=== PATIENT | female | born 2000 | race Caucasian/White ===

== ENCOUNTER 2023-02-05 19:53 | Observation (INO) ==
[2023-02-05 21:17] LABS: BILIRUBIN,URINE NEGATIVE (NEGATIVE); BLOOD/HEMOGLOBIN,URINE NEGATIVE (NEGATIVE); GLUCOSE, URINE NEGATIVE (NEGATIVE); KETONES,URINE NEGATIVE (NEGATIVE); LEUKOCYTE ESTERASE ,URINE NEGATIVE (NEGATIVE); NITRITES,URINE NEGATIVE (NEGATIVE); PROTEIN,URINE NEGATIVE (NEGATIVE); UROBILINOGEN,URINE NORMAL (NORMAL)
[2023-02-05 21:25] LABS: APPEARANCE,URINE CLEAR (CLEAR); COLOR,URINE PALE YELLOW (YELLOW)
--- NOTE | 2023-02-05 22:03 | ED.ABDFE ---
HPI Time Seen Time Seen by Provider: 02/05/23 22:02 PCP Primary Care Physician: CHRIS JOHNS Complaint Chief Complaint:: PT STATES" SHE STARTED HAVING ABDOMINAL PAIN FIVE DAYS AGO. SHE WENT AND SAY NAT AND RECIEVED PROTONIX AND GI COCKTAIL, AND HAD A U LTRASOUND DONE YESTERDAY. 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 Past Surgical History: Yes Surgical History: Appendectomy Family History History of Family Medical Conditions: Yes Family Medical History: Diabetes Mellitus, Cancer and Coronary Artery Disease Social History Type of Tobacco Use: VAPE Alcohol Use: None Do you use any recreational Drugs:: No Lives Where: Home Travel Risk Coronavirus risk:travel/contact w/high risk person: No Has patient experienced Coronavirus symptoms: No Infectious screening In the last 2 months have you had wt loss of >10#?: NO Have you had fever, night sweats or hemotysis?: No Have you traveled outside the country in the last 6 months?: No Isolation: Standard PE Vital Signs Vitals: Temperature 98 F Pulse Rate 77 Respiratory Rate 18 Blood Pressure 166/66 O2 Sat by Pulse Oximetry 98 ROR Labs Reviewed Result Diagrams: 02/05/23 22:21 02/05/23 22:21 Laboratory: WBC 9.8 X10^3/uL (3.6-10.0) 02/05/23 22:21 RBC 4.68 X10^6/uL (3.5-5.4) 02/05/23 22:21 Hgb 14.0 g/dL (12.0-16.0) 02/05/23 22:21 Hct 40.1 % (36.0-47.0) 02/05/23 22:21 MCV 85.7 fL (80.0-100.0) 02/05/23 22:21 MCH 29.9 pg (27.0-34.0) 03/25/23 22:21 MCHC 34.8 g/dL (33.0-35.0) 02/05/23 22:21 RDW 12.5 % (11.6-16.5) 02/05/23 22:21 Plt Count 263 X10^3/uL (150.0-450.0) 02/05/23 22:21 MPV 8.0 fL (7.4-11.0) 02/05/23 22:21 Neut % (Auto) 53.6 % (42.0-75.0) 02/05/23 22:21 Lymph % (Auto) 29.5 % (21.0-51.0) 02/05/23 22:21 [place] % (Auto) 6.6 % (0.0-13.0) 02/05/23 22:21 Eos % (Auto) 9.8 % (0.9-2.9) H 02/05/23 22:21 Baso % (Auto) 0.5 % (0.2-1.0) 02/05/23 22:21 Neut # (Auto) 5.3 x10^3/uL (2.2-4.8) H 02/05/23 22:21 Lymph # (Auto) 2.9 X10^3/uL (1.3-2.9) 02/05/23 22:21 [place] # (Auto) 0.6 x10^3/uL (0.3-0.8) 02/05/23 22:21 Eos # (Auto) 1.0 x10^3/uL (0.0-0.2) H 02/05/23 22:21 Baso # (Auto) 0.0 X10^3/uL (0.0-0.1) 02/05/23 22:21 Absolute Nucleated RBC 0.0 /100WBC 02/05/23 22:21 Sodium 140 mmol/L (136-145) 02/05/23 22:21 Corrected Sodium TNP 02/05/23 22:21 Potassium 4.0 mmol/L (3.5-5.1) 02/05/23 22:21 Chloride 103 mmol/L (98-107) 02/05/23 22:21 Carbon Dioxide 28.6 mmol/L (21-32) 02/05/23 22:21 BUN 13 mg/dL (7-18) 02/05/23 22:21 Creatinine 0.79 mg/dL (0.55-1.02) 02/05/23 22:21 Est GFR (MDRD) Af Amer > 60 (>60) 02/05/23 22:21 Est GFR (MDRD) Non-Af > 60 (>60) 02/05/23 22:21 Glucose 89 mg/dL (65-99) 02/05/23 22:21 Calcium 9.4 mg/dL (8.5-10.1) 02/05/23 22:21 Corrected Calcium TNP 02/05/23 22:21 Total Bilirubin 0.30 mg/dL (0.2-1.0) 02/05/23 22:21 AST 12 Units/L (15-37) L 02/05/23 22:21 ALT 19 Units/L (12-78) 02/05/23 22:21 Alkaline Phosphatase 56 Units/L (46-116) 02/05/23 22:21 Total Protein 7.4 g/dL (6.4-8.2) 02/05/23 22:21 Albumin 4.3 g/dL (3.4-5.0) 02/05/23 22:21 Globulin 3.1 g/dL (2.5-4.5) 02/05/23 22:21 Albumin/Globulin Ratio 1.4 Ratio (1.1-2.1) 02/05/23 22:21 Amylase 47 Units/L (25-115) 02/05/23 22:21 Lipase 94 Units/L (73-393) 02/05/23 22:21 HCG, Qual Negative <10 mIU/mL 02/05/23 22:21 HCG, Quant Cancelled 02/05/23 22:21 Specimen Type Clean catch urine 02/05/23 21:06 Urine Color Pale yellow (YELLOW) 02/05/23 21:06 Urine Appearance Clear (CLEAR) 02/05/23 21:06 Urine pH 7.0 (5.0 - 8.0) 02/05/23 21:06 Ur Specific [place] 1.015 (1.000-1.030) 02/05/23 21:06 Urine Protein Negative (NEGATIVE) 02/05/23 21:06 Urine Glucose (UA) Negative (NEGATIVE) 02/05/23 21:06 Urine Ketones Negative (NEGATIVE) 02/05/23 21:06 Urine Blood Negative (NEGATIVE) 02/05/23 21:06 Urine Nitrite Negative (NEGATIVE) 02/05/23 21:06 Urine Bilirubin Negative (NEGATIVE) 02/05/23 21:06 Urine Urobilinogen Normal (NORMAL) 02/05/23 21:06 Ur Leukocyte Esterase Negative (NEGATIVE) 02/05/23 21:06 Opioid Opioid Risk Tool Age (Blayne box if 16-45): Yes History of Preadolescent Sexual Abuse: No Total: 1 Total Score Risk Category: Low Risk Copyright: Bc GARG predicting aberrant behaviors Discharge Plan Discharge Plan Patient Disposition: 01 HOME, SELF-CARE Condition: Stable Orders to Discharge Patient Discharge Orders: Transfer (Routine); Ordered 02/06/23 Ordered By: BERNARDO OLPEZ
[2023-02-05] MEDS ORDERED: PEPCID 20 MG VIAL 20 MG in NS 50 ML IV 50 ML IV ONE (22:16)
[2023-02-05] MEDS ORDERED: CARAFATE PO ONE (22:17)
[2023-02-05 22:39] LABS: BASOPHILS % (AUTO) 0.5 % (0.2-1.0); EOSINOPHILS % (AUTO) 9.8 % (0.9-2.9); HEMATOCRIT 40.1 % (36.0-47.0); LYMPHOCYTES # (AUTO) 2.9 X10^3/uL (1.3-2.9); LYMPHOCYTES % (AUTO) 29.5 % (21.0-51.0); MEAN CORPUSCULAR HEMOGLOBIN 29.9 pg (27.0-34.0); MEAN CORPUSCULAR HGB CONC 34.8 g/dL (33.0-35.0); MEAN CORPUSCULAR VOLUME 85.7 fL (80.0-100.0); MONOCYTES # (AUTO) 0.6 x10^3/uL (0.3-0.8); MONOCYTES % (AUTO) 6.6 % (0.0-13.0); NEUTROPHILS # (AUTO) 5.3 x10^3/uL (2.2-4.8); NEUTROPHILS % (AUTO) 53.6 % (42.0-75.0); RED BLOOD COUNT 4.68 X10^6/uL (3.5-5.4); RED CELL DISTRIBUTION WIDTH 12.5 % (11.6-16.5); WHITE BLOOD COUNT 9.8 X10^3/uL (3.6-10.0)
[2023-02-05] MEDS ORDERED: PEPCID 20 MG VIAL ONE (22:42)
[2023-02-05] MEDS ORDERED: CARAFATE ONE (22:42)
[2023-02-05] MEDS ORDERED: NS 1,000 ML IV 1,000 ML ONE (22:42)
[2023-02-05 22:43] LABS: ALANINE AMINOTRANSFERASE 19 Units/L (12-78); ALBUMIN 4.3 g/dL (3.4-5.0); ALKALINE PHOSPHATASE 56 Units/L (46-116); AMYLASE 47 Units/L (25-115); ASPARTATE AMINO TRANSFERASE 12 Units/L (15-37); BLOOD UREA NITROGEN 13 mg/dL (7-18); CALCIUM 9.4 mg/dL (8.5-10.1); CARBON DIOXIDE 28.6 mmol/L (21-32); CHLORIDE 103 mmol/L (98-107); CREATININE 0.79 mg/dL (0.55-1.02); LIPASE 94 Units/L (73-393); SODIUM 140 mmol/L (136-145); TOTAL PROTEIN 7.4 g/dL (6.4-8.2); eGFR NON BLACK RACES > 60 (>60)
[2023-02-05 22:51] LABS: SERUM PREGNANCY TEST, QUAL NEGATIVE <10 mIU/mL
[2023-02-05] MEDS ORDERED: NS 1,000 ML IV 1,000 ML IV SCH (23:00)
[2023-02-05] MEDS ORDERED: MORPHINE SULFATE INJ 4 MG IVP ONE (23:42)
[2023-02-05] MEDS ORDERED: ZOFRAN INJ 4 MG VIAL IVP ONE (23:42)
[2023-02-05] MEDS ORDERED: MORPHINE SULFATE INJ 4 MG ONE (23:43)
[2023-02-05] MEDS ORDERED: ZOFRAN INJ 4 MG VIAL ONE (23:44)
[2023-02-06] MEDS: PROTONIX INJ 40 MG VIAL 80 MG in NS 100 ML IV 80 ML IV SCH ×3 (01:38→22:37)
[2023-02-06] MEDS: NS 1,000 ML IV 1,000 ML IV SCH ×4 (01:39→21:21)
[2023-02-06] MEDS: DEMEROL INJ IVP PRN ×4 (01:54→21:14)
[2023-02-06 03:24] VITALS: BMI 24.3
[2023-02-06 05:07] LABS: BASOPHILS # (AUTO) 0.1 X10^3/uL (0.0-0.1); BASOPHILS % (AUTO) 0.6 % (0.2-1.0); EOSINOPHILS # (AUTO) 0.9 x10^3/uL (0.0-0.2); EOSINOPHILS % (AUTO) 9.4 % (0.9-2.9); HEMATOCRIT 36.5 % (36.0-47.0); HEMOGLOBIN 12.7 g/dL (12.0-16.0); LYMPHOCYTES # (AUTO) 2.6 X10^3/uL (1.3-2.9); LYMPHOCYTES % (AUTO) 26.1 % (21.0-51.0); MEAN CORPUSCULAR HEMOGLOBIN 29.5 pg (27.0-34.0); MEAN CORPUSCULAR HGB CONC 34.8 g/dL (33.0-35.0); MEAN CORPUSCULAR VOLUME 84.9 fL (80.0-100.0); MEAN PLATELET VOLUME 8.4 fL (7.4-11.0); MONOCYTES # (AUTO) 0.7 x10^3/uL (0.3-0.8); MONOCYTES % (AUTO) 7.1 % (0.0-13.0); NEUTROPHILS # (AUTO) 5.6 x10^3/uL (2.2-4.8); NEUTROPHILS % (AUTO) 56.8 % (42.0-75.0); RED CELL DISTRIBUTION WIDTH 12.3 % (11.6-16.5); WHITE BLOOD COUNT 9.9 X10^3/uL (3.6-10.0)
[2023-02-06 05:16] LABS: ALANINE AMINOTRANSFERASE 13 Units/L (12-78); ALBUMIN 3.4 g/dL (3.4-5.0); ALKALINE PHOSPHATASE 43 Units/L (46-116); ASPARTATE AMINO TRANSFERASE 12 Units/L (15-37); BLOOD UREA NITROGEN 12 mg/dL (7-18); CALCIUM 8.3 mg/dL (8.5-10.1); CARBON DIOXIDE 24.2 mmol/L (21-32); CHLORIDE 106 mmol/L (98-107); CREATININE 0.69 mg/dL (0.55-1.02); SODIUM 139 mmol/L (136-145); eGFR NON BLACK RACES > 60 (>60)
[2023-02-06] MEDS: ZOFRAN INJ 4 MG VIAL IVP PRN ×3 (09:34→21:14)
--- NOTE | 2023-02-06 10:58 | DR.PROGNOT ---
HOSPITAL PROGRESS NOTE Progress Note for Day of: Progress Note Date: 02/06/23 Chief Complaint Chief Complaint: still c/o epigastric pain ,no N,V.. CT was normal . lab work WNL .. History of Present Illness History of Present Illness: no changes Past Medical Family Social History Allergies: Allergies No Known Drug Allergies Allergy (Verified 04/12/22 22:24) Review Of Systems ROS: No change since H&P Vital Signs Vital Signs: Temperature 97.9 F Pulse Rate [Left] 57 Pulse Rate 77 Respiratory Rate 18 Blood Pressure [Left Arm] 107/57 Blood Pressure 166/66 O2 Sat by Pulse Oximetry 97 Physical Exam Oriented: Normal Eyes: Normal Respiratory: Normal Cardiovascular: Normal GI:Palpation: Normal (full abdomen , ) GI: Tenderness: Epigastric (soft but full abdomen with epigastric and RUQ ten der[place] . mild rebound . BS+) Speech Pattern: Clear and Appropriate Laboratory and Diagnostics Result Diagrams: 02/06/23 04:33 02/06/23 04:33 Labs: Laboratory WBC 9.9 X10^3/uL (3.6-10.0) 02/06/23 04:33 RBC 4.30 X10^6/uL (3.5-5.4) 02/06/23 04:33 Hgb 12.7 g/dL (12.0-16.0) 02/06/23 04:33 Hct 36.5 % (36.0-47.0) 02/06/23 04:33 MCV 84.9 fL (80.0-100.0) 02/06/23 04:33 MCH 29.5 pg (27.0-34.0) 02/06/23 04:33 MCHC 34.8 g/dL (33.0-35.0) 02/06/23 04:33 RDW 12.3 % (11.6-16.5) 02/06/23 04:33 Plt Count 223 X10^3/uL (150.0-450.0) 02/06/23 04:33 MPV 8.4 fL (7.4-11.0) 02/06/23 04:33 Neut % (Auto) 56.8 % (42.0-75.0) 02/06/23 04:33 Lymph % (Auto) 26.1 % (21.0-51.0) 02/06/23 04:33 [place] % (Auto) 7.1 % (0.0-13.0) 02/06/23 04:33 Eos % (Auto) 9.4 % (0.9-2.9) H 02/06/23 04:33 Baso % (Auto) 0.6 % (0.2-1.0) 02/06/23 04:33 Neut # (Auto) 5.6 x10^3/uL (2.2-4.8) H 02/06/23 04:33 Lymph # (Auto) 2.6 X10^3/uL (1.3-2.9) 02/06/23 04:33 [place] # (Auto) 0.7 x10^3/uL (0.3-0.8) 02/06/23 04:33 Eos # (Auto) 0.9 x10^3/uL (0.0-0.2) H 02/06/23 04:33 Baso # (Auto) 0.1 X10^3/uL (0.0-0.1) 02/06/23 04:33 Absolute Nucleated RBC 0.0 /100WBC 02/06/23 04:33 Sodium 139 mmol/L (136-145) 02/06/23 04:33 Corrected Sodium TNP 02/06/23 04:33 Potassium 4.0 mmol/L (3.5-5.1) 02/06/23 04:33 Chloride 106 mmol/L (98-107) 02/06/23 04:33 Carbon Dioxide 24.2 mmol/L (21-32) 02/06/23 04:33 BUN 12 mg/dL (7-18) 02/06/23 04:33 Creatinine 0.69 mg/dL (0.55-1.02) 02/06/23 04:33 Est GFR (MDRD) Af Amer > 60 (>60) 02/06/23 04:33 Est GFR (MDRD) Non-Af > 60 (>60) 02/06/23 04:33 Glucose 83 mg/dL (65-99) 02/06/23 04:33 Calcium 8.3 mg/dL (8.5-10.1) L 02/06/23 04:33 Corrected Calcium TNP 02/06/23 04:33 Total Bilirubin 0.40 mg/dL (0.2-1.0) 02/06/23 04:33 AST 12 Units/L (15-37) L 02/06/23 04:33 ALT 13 Units/L (12-78) 02/06/23 04:33 Alkaline Phosphatase 43 Units/L (46-116) L 02/06/23 04:33 Total Protein 6.0 g/dL (6.4-8.2) L 02/06/23 04:33 Albumin 3.4 g/dL (3.4-5.0) 02/06/23 04:33 Globulin 2.6 g/dL (2.5-4.5) 02/06/23 04:33 Albumin/Globulin Ratio 1.3 Ratio (1.1-2.1) 02/06/23 04:33 Amylase 47 Units/L (25-115) 02/05/23 22:21 Lipase 94 Units/L (73-393) 02/05/23 22:21 HCG, Qual Negative <10 mIU/mL 02/05/23 22:21 HCG, Quant Cancelled 02/05/23 22:21 Specimen Type Clean catch urine 02/05/23 21:06 Urine Color Pale yellow (YELLOW) 02/05/23 21:06 Urine Appearance Clear (CLEAR) 02/05/23 21:06 Urine pH 7.0 (5.0 - 8.0) 02/05/23 21:06 Ur Specific [place] 1.015 (1.000-1.030) 02/05/23 21:06 Urine Protein Negative (NEGATIVE) 02/05/23 21:06 Urine Glucose (UA) Negative (NEGATIVE) 02/05/23 21:06 Urine Ketones Negative (NEGATIVE) 02/05/23 21:06 Urine Blood Negative (NEGATIVE) 02/05/23 21:06 Urine Nitrite Negative (NEGATIVE) 02/05/23 21:06 Urine Bilirubin Negative (NEGATIVE) 02/05/23 21:06 Urine Urobilinogen Normal (NORMAL) 02/05/23 21:06 Ur Leukocyte Esterase Negative (NEGATIVE) 02/05/23 21:06 Assessment and Plan 1: peptic ulcer disease . for EGD in am .. on IV Protonix .and pain control .. 2: cholecystitis . if EGD is negative will do HIDA scan ..
[2023-02-06] MEDS ORDERED: NS 100 ML IV 100 ML ONE (13:25)
[2023-02-07] MEDS: ZOFRAN INJ 4 MG VIAL IVP PRN (03:00)
[2023-02-07] MEDS: DEMEROL INJ IVP PRN (03:00)
[2023-02-07 06:49] LABS: BASOPHILS % (AUTO) 0.2 % (0.2-1.0); EOSINOPHILS # (AUTO) 0.8 x10^3/uL (0.0-0.2); HEMOGLOBIN 11.8 g/dL (12.0-16.0); LYMPHOCYTES # (AUTO) 2.3 X10^3/uL (1.3-2.9); LYMPHOCYTES % (AUTO) 28.7 % (21.0-51.0); MEAN CORPUSCULAR HEMOGLOBIN 29.5 pg (27.0-34.0); MEAN CORPUSCULAR HGB CONC 34.8 g/dL (33.0-35.0); MEAN CORPUSCULAR VOLUME 84.7 fL (80.0-100.0); MEAN PLATELET VOLUME 8.2 fL (7.4-11.0); MONOCYTES # (AUTO) 0.6 x10^3/uL (0.3-0.8); MONOCYTES % (AUTO) 7.3 % (0.0-13.0); NEUTROPHILS # (AUTO) 4.3 x10^3/uL (2.2-4.8); NEUTROPHILS % (AUTO) 53.8 % (42.0-75.0); RED BLOOD COUNT 4.01 X10^6/uL (3.5-5.4); RED CELL DISTRIBUTION WIDTH 12.5 % (11.6-16.5)
[2023-02-07 07:02] LABS: ALANINE AMINOTRANSFERASE 13 Units/L (12-78); ALBUMIN 3.2 g/dL (3.4-5.0); ALKALINE PHOSPHATASE 45 Units/L (46-116); ASPARTATE AMINO TRANSFERASE 12 Units/L (15-37); BLOOD UREA NITROGEN 5 mg/dL (7-18); CARBON DIOXIDE 27.5 mmol/L (21-32); CHLORIDE 107 mmol/L (98-107); COR CA(FOR HYPOALB) 8.6 mg/dL (8.5-10.1); CREATININE 0.65 mg/dL (0.55-1.02); SODIUM 139 mmol/L (136-145); TOTAL PROTEIN 5.7 g/dL (6.4-8.2); eGFR NON BLACK RACES > 60 (>60)
[2023-02-07] MEDS ORDERED: OFIRMEV IV 1000 MG VIAL 1,000 MG/100 ML VIAL IV ONE (08:04)
[2023-02-07] MEDS: NS 1,000 ML IV 1,000 ML IV SCH (08:16)
--- NOTE | 2023-02-07 08:52 | CT ---
HISTORYAbdominal PAINSTUDYABDOMEN/PELVIS W/O CONCOMPARISONNoneTECHNIQUEMultiple axial images of the abdomen and pelvis were obtained from the lung bases to the pubic symphysis without the administration of IV contrast. Dose reduction techniques including Automated Exposure Control (AEC) and adjustment of mA and kV were utilized.FINDINGSThe lung bases are clear. The abdominal aorta tapers normally. No liver lesion. Noninflamed gallbladder. Normal adrenal glands. No renal stones or obstructive uropathy. Normal spleen contours. Noninflamed pancreas. Food noted within the stomach.Large volume of stool throughout the colon. No sign of appendicitis. No free air or bowel wall thickening.No suspicious bony lesion.IMPRESSIONLarge volume of stool throughout the colon suggests constipation without obstruction.Electronically signed by: Sonido Cisneros (Feb 06, 2023 00:02:59)
--- NOTE | 2023-02-07 09:50 | EKG ---
Test Reason : chest pain Blood Pressure : */* mmHG Vent. Rate : 68 BPM Atrial Rate : 68 BPM P-R Int : 172 ms QRS Dur : 86 ms QT Int : 396 ms P-R-T Axes : 63 64 48 degrees QTc Int : 421 ms Normal sinus rhythm with sinus arrhythmia Normal ECG No previous ECGs available Confirmed by David Davenport ([id number]) on 02/09/2023 10:36:35 AM Referred By: Confirmed By: David Davenport
[2023-02-07] MEDS: PROTONIX INJ 40 MG VIAL 80 MG in NS 100 ML IV 80 ML IV SCH (10:16)
[2023-02-07] MEDS ORDERED: TORADOL 15 MG VIAL IVP PRN (13:46)
[2023-02-07 16:20] VITALS: BP 106/69
== END 2023-02-07 17:45 | disposition home or self-care (01) ==
LOC: MED/SURG 19:57 → ER 19:57 → MED/SURG 02-06 01:10
PROVIDERS: ADMIT Surgery; ATTEND Surgery
DX: K27.3 Acute peptic ulcer, site unspecified, without hemorrhage or perforation; K59.09 Other constipation; R79.89 Other specified abnormal findings of blood chemistry; K81.9 Cholecystitis, unspecified; R10.84 Generalized abdominal pain; R51.9 Headache, unspecified

== ENCOUNTER 2023-02-13 14:47 | Observation (INO) ==
[2023-02-13 15:05] VITALS: BMI 23.6
[2023-02-13 15:06] LABS: BILIRUBIN,URINE NEGATIVE (NEGATIVE); BLOOD/HEMOGLOBIN,URINE NEGATIVE (NEGATIVE); GLUCOSE, URINE NEGATIVE (NEGATIVE); KETONES,URINE NEGATIVE (NEGATIVE); LEUKOCYTE ESTERASE ,URINE 1+ (NEGATIVE); NITRITES,URINE NEGATIVE (NEGATIVE); PROTEIN,URINE NEGATIVE (NEGATIVE); UROBILINOGEN,URINE NORMAL (NORMAL)
[2023-02-13 15:15] LABS: COLOR,URINE YELLOW (YELLOW)
[2023-02-13 15:16] LABS: APPEARANCE,URINE CLEAR (CLEAR); BACTERIA,URINE TRACE /HPF (NEGATIVE); RBC,URINE 0-2 /HPF (0-3); SQUAMOUS EPITHELIAL CELL,UR FEW /HPF (NEGATIVE)
[2023-02-13 15:17] LABS: BASOPHILS % (AUTO) 0.3 % (0.2-1.0); EOSINOPHILS # (AUTO) 1.3 x10^3/uL (0.0-0.2); EOSINOPHILS % (AUTO) 16.8 % (0.9-2.9); HEMATOCRIT 39.8 % (36.0-47.0); HEMOGLOBIN 13.8 g/dL (12.0-16.0); LYMPHOCYTES # (AUTO) 1.5 X10^3/uL (1.3-2.9); LYMPHOCYTES % (AUTO) 19.5 % (21.0-51.0); MEAN CORPUSCULAR HEMOGLOBIN 29.8 pg (27.0-34.0); MEAN CORPUSCULAR HGB CONC 34.6 g/dL (33.0-35.0); MONOCYTES # (AUTO) 0.4 x10^3/uL (0.3-0.8); MONOCYTES % (AUTO) 5.7 % (0.0-13.0); NEUTROPHILS # (AUTO) 4.4 x10^3/uL (2.2-4.8); NEUTROPHILS % (AUTO) 57.7 % (42.0-75.0); RED BLOOD COUNT 4.63 X10^6/uL (3.5-5.4); RED CELL DISTRIBUTION WIDTH 12.4 % (11.6-16.5); WHITE BLOOD COUNT 7.6 X10^3/uL (3.6-10.0)
[2023-02-13 15:18] LABS: SERUM PREGNANCY TEST, QUAL NEGATIVE <10 mIU/mL
[2023-02-13] MEDS ORDERED: ZOFRAN INJ 4 MG VIAL IVP ONE (15:19)
[2023-02-13] MEDS ORDERED: TORADOL 30 MG VIAL IVP ONE (15:19)
[2023-02-13] MEDS ORDERED: TORADOL 30 MG VIAL ONE ×2 (15:20→17:19)
[2023-02-13] MEDS ORDERED: ZOFRAN INJ 4 MG VIAL ONE (15:20)
[2023-02-13 15:22] LABS: ALANINE AMINOTRANSFERASE 22 Units/L (12-78); ALKALINE PHOSPHATASE 51 Units/L (46-116); AMYLASE 36 Units/L (25-115); ASPARTATE AMINO TRANSFERASE 14 Units/L (15-37); BLOOD UREA NITROGEN 11 mg/dL (7-18); CALCIUM 8.6 mg/dL (8.5-10.1); CARBON DIOXIDE 28.9 mmol/L (21-32); CHLORIDE 103 mmol/L (98-107); CREATININE 0.67 mg/dL (0.55-1.02); LIPASE 87 Units/L (73-393); SODIUM 138 mmol/L (136-145); TOTAL PROTEIN 6.9 g/dL (6.4-8.2); eGFR NON BLACK RACES > 60 (>60)
--- NOTE | 2023-02-13 15:25 | ED.ABDFE ---
HPI Time Seen Time Seen by Provider: 02/13/23 14:50 PCP Primary Care Physician: CHRIS JOHNS Complaint Chief Complaint:: PT C/O OF UPPER EPIGASTRIC PAIN ALONG WITH NAUSEA DENIES ANY VOMITING,DIARRHEA PT LAST BM WAS TUESDAY Self Treatment fo Chief Complaint: PANTOPRAZOLE COVID-19 Coronavirus risk:travel/contact w/high risk person: No Has patient experienced Coronavirus symptoms: No Reviewed Nurses Notes Review: Yes Source History Provided: Patient Mode of arrival Mode of Arrival: Ambulatory Timing Onset of Chief Complaint: 02/03/23 Came on: Gradually Duration Since Onset: Intermittent Location Location: Epigastric Severity Severity: Mild Quality Quality: Burning and Cramping PMH PMH Past Medical History: Yes Past Medical History Comment: MVP,MURMURS,STOMACH ULCERS,PRECANCEROUS CELL IN ESOPHAGUS Past Surgical History: Yes Surgical History: Appendectomy Family History History of Family Medical Conditions: Yes Family Medical History: Diabetes Mellitus, Cancer and Coronary Artery Disease Social History Does patient currently use any type of tobacco product: Yes Have you used tobacco products in the last 12 months: Yes Type of Tobacco Use: VAPE Does any household member use tobacco: Yes Alcohol Use: None Do you use any recreational Drugs:: No Lives With: Spouse Lives Where: Home Travel Risk Coronavirus risk:travel/contact w/high risk person: No Has patient experienced Coronavirus symptoms: No Infectious screening In the last 2 months have you had wt loss of >10#?: NO Have you had fever, night sweats or hemotysis?: No Have you traveled outside the country in the last 6 months?: No Isolation: Standard ROS Review of Systems Constitutional: No Symptoms Reported Eyes: No Symptoms Reported ENTM: No Symptoms Reported Respiratoy: No Symptoms Reported Cardiovascular: No Symptoms Reported Gastrointestinal/Abdominal: See HPI and Abdominal Pain Genitourinary: No Symptoms Reported Neurological: No Symptoms Reported Musculoskeletal: No Symptoms Reported Integumentary: No Symptoms Reported Hematologic/Lymphatic: No Symptoms Reported Endocrine: No Symptoms Reported Psychiatric: No Symptoms Reported All Other Systems: Reviewed and Negative PE Vital Signs Vitals: Temperature 98.3 F Pulse Rate 88 Respiratory Rate 20 Blood Pressure [Left Arm] 106/69 Blood Pressure 125/81 O2 Sat by Pulse Oximetry 99 General Limitations: No Limitations and Language Barrier General Appearance: Alert and In No Apparent Distress Head Head Exam: Normal Inspection Eyes Eye exam: Normal Appearance ENT ENT Exam: Normal Exam Neck Neck Exam: Normal Inspection Chest Chest Inspection: Normal Inspection Respiratory Respiratory Exam: Normal Lung Sounds Bilat Cardiovascular Cardiovascular Exam: Regular Rate and Normal Rhythm Abdominal Exam Abdominal Exam: Normal Inspection and Normal Bowel Sounds Rectal Rectal Exam: Deferred Back Back Exam: Normal Inspection Extremeties Extremities Exam: Normal Inspection Neurologic Neurological Exam: Alert and Oriented X3 Psychiatric Psychiatric Exam: Normal Affect and Normal Mood Skin Skin Exam: Warm, Dry and Intact COURSE Reevaluation 1st: Improved ROR Labs Reviewed Laboratory Results Reviewed?: Yes Result Diagrams: 02/13/23 15:00 02/13/23 15:00 Laboratory: WBC 7.6 X10^3/uL (3.6-10.0) 02/13/23 15:00 RBC 4.63 X10^6/uL (3.5-5.4) 02/13/23 15:00 Hgb 13.8 g/dL (12.0-16.0) 02/13/23 15:00 Hct 39.8 % (36.0-47.0) 02/13/23 15:00 MCV 86.0 fL (80.0-100.0) 02/13/23 15:00 MCH 29.8 pg (27.0-34.0) 02/13/23 15:00 MCHC 34.6 g/dL (33.0-35.0) 02/13/23 15:00 RDW 12.4 % (11.6-16.5) 02/13/23 15:00 Plt Count 240 X10^3/uL (150.0-450.0) 02/13/23 15:00 MPV 8.0 fL (7.4-11.0) 02/13/23 15:00 Neut % (Auto) 57.7 % (42.0-75.0) 02/13/23 15:00 Lymph % (Auto) 19.5 % (21.0-51.0) L 02/13/23 15:00 [place] % (Auto) 5.7 % (0.0-13.0) 02/13/23 15:00 Eos % (Auto) 16.8 % (0.9-2.9) H 02/13/23 15:00 Baso % (Auto) 0.3 % (0.2-1.0) 02/13/23 15:00 Neut # (Auto) 4.4 x10^3/uL (2.2-4.8) 02/13/23 15:00 Lymph # (Auto) 1.5 X10^3/uL (1.3-2.9) 02/13/23 15:00 [place] # (Auto) 0.4 x10^3/uL (0.3-0.8) 02/13/23 15:00 Eos # (Auto) 1.3 x10^3/uL (0.0-0.2) H 02/13/23 15:00 Baso # (Auto) 0.0 X10^3/uL (0.0-0.1) 02/13/23 15:00 Absolute Nucleated RBC 0.1 /100WBC 02/13/23 15:00 Sodium 138 mmol/L (136-145) 02/13/23 15:00 Corrected Sodium TNP 02/13/23 15:00 Potassium 3.4 mmol/L (3.5-5.1) L 02/13/23 15:00 Chloride 103 mmol/L (98-107) 02/13/23 15:00 Carbon Dioxide 28.9 mmol/L (21-32) 02/13/23 15:00 BUN 11 mg/dL (7-18) 02/13/23 15:00 Creatinine 0.67 mg/dL (0.55-1.02) 02/13/23 15:00 Est GFR (MDRD) Af Amer > 60 (>60) 02/13/23 15:00 Est GFR (MDRD) Non-Af > 60 (>60) 02/13/23 15:00 Glucose 93 mg/dL (65-99) 02/13/23 15:00 Calcium 8.6 mg/dL (8.5-10.1) 02/13/23 15:00 Corrected Calcium TNP 02/13/23 15:00 Total Bilirubin 0.30 mg/dL (0.2-1.0) 02/13/23 15:00 AST 14 Units/L (15-37) L 02/13/23 15:00 ALT 22 Units/L (12-78) 02/13/23 15:00 Alkaline Phosphatase 51 Units/L (46-116) 02/13/23 15:00 Total Protein 6.9 g/dL (6.4-8.2) 02/13/23 15:00 Albumin 4.0 g/dL (3.4-5.0) 02/13/23 15:00 Globulin 2.9 g/dL (2.5-4.5) 02/13/23 15:00 Albumin/Globulin Ratio 1.4 Ratio (1.1-2.1) 02/13/23 15:00 Amylase 36 Units/L (25-115) 02/13/23 15:00 Lipase 87 Units/L (73-393) 02/13/23 15:00 HCG, Qual Negative <10 mIU/mL 02/13/23 15:00 Specimen Type Clean catch urine 02/13/23 15:00 Urine Color Yellow (YELLOW) 02/13/23 15:00 Urine Appearance Clear (CLEAR) 02/13/23 15:00 Urine pH 8.0 (5.0 - 8.0) 02/13/23 15:00 Ur Specific [place] 1.010 (1.000-1.030) 02/13/23 15:00 Urine Protein Negative (NEGATIVE) 02/13/23 15:00 Urine Glucose (UA) Negative (NEGATIVE) 02/13/23 15:00 Urine Ketones Negative (NEGATIVE) 02/13/23 15:00 Urine Blood Negative (NEGATIVE) 02/13/23 15:00 Urine Nitrite Negative (NEGATIVE) 02/13/23 15:00 Urine Bilirubin Negative (NEGATIVE) 02/13/23 15:00 Urine Urobilinogen Normal (NORMAL) 02/13/23 15:00 Ur Leukocyte Esterase 1+ (NEGATIVE) 02/13/23 15:00 Urine RBC 0-2 /HPF (0-3) 02/13/23 15:00 Urine WBC 3-5 /HPF (0-5) 02/13/23 15:00 Ur Squamous Epith Cells Few /HPF (NEGATIVE) 02/13/23 15:00 Amorphous Sediment Trace /HPF (NEGATIVE) 02/13/23 15:00 Urine Bacteria Trace /HPF (NEGATIVE) 02/13/23 15:00 Ur Culture Indicated? No/not indicated 02/13/23 15:00 XRAY XRAY Interpreted by: Radiologist Opioid Opioid Risk Tool Age (Blayne box if 16-45): Yes History of Preadolescent Sexual Abuse: No Total: 1 Total Score Risk Category: Low Risk Copyright: Bc GARG predicting aberrant behaviors Discharge Plan Diagnosis Discharge Problem: Constipation Discharge Plan Patient Disposition: 01 HOME, SELF-CARE Condition: Stable Prescriptions: No Action dicyclomine 10 mg Capsule 10 mg PO Q8H PRNQty: 30 1RF pantoprazole 40 mg Tablet,Delayed Release (Dr/Ec) 40 mg PO BID Qty: 60 1RF Health Concerns: Post Hospitalization: new medications and changes needed to prevent readmission or further decline. Pt educated and given instructions on all concerns. Plan of Treatment: Continue with present treatment and follow up plan. Pt is to keep follow up appointment as instructed and take medications as ordered. Orders to Discharge Patient Discharge Orders: Discharge (Routine); Ordered 02/13/23 Ordered By: Aryan Miguel Transfer (Routine); Ordered 02/13/23 Ordered By: Aryan Mgiuel Follow ups/Referrals Follow ups/Referrals: Chris Johns [Primary Care Provider] - 3 days
--- NOTE | 2023-02-13 15:59 | CT ---
HISTORYUPPER EPIGASRIC PAIN, NAUSEASTUDYABDOMEN/PELVIS WITH CONCOMPARISONMarch 2022TECHNIQUEAxial CT images of the abdomen and pelvis were obtained after the administration of IV contrast, 100 mL Omnipaque 350, and reformatted into coronal and sagittal planes for further evaluation.Radiation dose: 171.88 mGy-cm total DLPFINDINGSLung bases are clear.Stomach appears normal.Solid visceral organs of the upper abdomen are unremarkable.Gallbladder appears normal with no biliary dilatation.Homogeneous enhancement of the kidneys without hydronephrosis or hydroureter.Unremarkable appearance of the urinary bladder.Imaged reproductive structures are unremarkable.Unremarkable appearance of the large and small bowel.Large stool burden in the rectum. Small to moderate stool burden throughout the remainder of the colon.Status post appendectomy.No pneumoperitoneum.No significant fluid collection.No adenopathy.No acute osseous abnormality.IMPRESSION1. No acute intra-abdominal abnormality detected.2. Large stool burden in the rectum. Small to moderate stool burden throughout the remainder of the colon.Electronically signed by: Ed Jacques (Feb 13, 2023 15:57:35)
[2023-02-13] MEDS ORDERED: D5 1/2 NS 1,000 ML 1,000 ML IV ONE (17:20)
[2023-02-13] MEDS: D5 1/2 NS 1,000 ML 1,000 ML IV SCH (17:28)
[2023-02-13] MEDS: TORADOL 30 MG VIAL IVP PRN ×2 (17:28→23:01)
[2023-02-13] MEDS: ZOFRAN INJ 4 MG VIAL IVP PRN (23:11)
[2023-02-14] MEDS: D5 1/2 NS 1,000 ML 1,000 ML IV SCH ×3 (03:00→22:48)
[2023-02-14] MEDS: TORADOL 30 MG VIAL IVP PRN ×6 (04:02→23:08)
[2023-02-14 06:29] LABS: BASOPHILS % (AUTO) 0.5 % (0.2-1.0); EOSINOPHILS # (AUTO) 1.6 x10^3/uL (0.0-0.2); EOSINOPHILS % (AUTO) 23.1 % (0.9-2.9); HEMATOCRIT 37.1 % (36.0-47.0); HEMOGLOBIN 12.7 g/dL (12.0-16.0); LYMPHOCYTES # (AUTO) 1.5 X10^3/uL (1.3-2.9); LYMPHOCYTES % (AUTO) 21.7 % (21.0-51.0); MEAN CORPUSCULAR HEMOGLOBIN 29.3 pg (27.0-34.0); MEAN CORPUSCULAR HGB CONC 34.3 g/dL (33.0-35.0); MEAN CORPUSCULAR VOLUME 85.4 fL (80.0-100.0); MEAN PLATELET VOLUME 8.8 fL (7.4-11.0); MONOCYTES # (AUTO) 0.4 x10^3/uL (0.3-0.8); MONOCYTES % (AUTO) 6.3 % (0.0-13.0); NEUTROPHILS # (AUTO) 3.4 x10^3/uL (2.2-4.8); NEUTROPHILS % (AUTO) 48.4 % (42.0-75.0); RED BLOOD COUNT 4.35 X10^6/uL (3.5-5.4); RED CELL DISTRIBUTION WIDTH 12.4 % (11.6-16.5)
[2023-02-14 06:38] LABS: ALANINE AMINOTRANSFERASE 20 Units/L (12-78); ALBUMIN 3.5 g/dL (3.4-5.0); ALKALINE PHOSPHATASE 46 Units/L (46-116); ASPARTATE AMINO TRANSFERASE 13 Units/L (15-37); BLOOD UREA NITROGEN 8 mg/dL (7-18); CALCIUM 8.1 mg/dL (8.5-10.1); CARBON DIOXIDE 29.8 mmol/L (21-32); CHLORIDE 103 mmol/L (98-107); CREATININE 0.62 mg/dL (0.55-1.02); SODIUM 138 mmol/L (136-145); TOTAL PROTEIN 6.1 g/dL (6.4-8.2); eGFR NON BLACK RACES > 60 (>60)
[2023-02-14] MEDS ORDERED: K-RIDER 10 MEQ/NS 100 ML 10 MEQ/100 ML BAG IV PRN (06:53)
[2023-02-14] MEDS ORDERED: MICRO K EXTEN CAP 10 MEQ PO PRN (06:53)
[2023-02-14] MEDS ORDERED: POTASSIUM CHL 60 MEQ/NS 0.45% 500 ML IV PRN (06:53)
[2023-02-14] MEDS ORDERED: POTASSIUM CHLORIDE LIQ 20 MEQ UDC PO PRN (06:53)
[2023-02-14] MEDS ORDERED: KLOR-CON PO PRN (06:53)
[2023-02-14] MEDS ORDERED: POTASSIUM CHL 40 MEQ/NS 0.45% 500 ML IV PRN (06:53)
[2023-02-14 07:07] LABS: BAND NEUTROPHILS % 4 % (0-10)
[2023-02-14 07:13] LABS: PLATELET MORPHOLOGY COMMENT NORMAL (NORMAL)
[2023-02-14] MEDS: MAGNESIUM SULFATE 1 GRAM/100 mL PREMIX 1 G/100 ML BAG IV PRN ×2 (09:40→09:41)
[2023-02-14] MEDS: K-DUR TAB 20 MEQ PO PRN (09:40)
[2023-02-14] MEDS: ZOFRAN INJ 4 MG VIAL IVP PRN ×2 (11:25→19:03)
--- NOTE | 2023-02-14 13:32 | DR.PROGNOT ---
HOSPITAL PROGRESS NOTE Progress Note for Day of: Progress Note Date: 02/14/23 Chief Complaint Chief Complaint: severe abdominal pain . had good results with the enemas but still with pain up to 06/23 K was 2.9 ..Mg 1.8 Past Medical Family Social History Past Med/Fam/Surg Hx: No changes since H&P Allergies: Allergies No Known Drug Allergies Allergy (Verified 02/11/23 09:24) Vital Signs Vital Signs: Temperature 98.4 F Pulse Rate [Brachial] 89 Pulse Rate 88 Respiratory Rate 20 Blood Pressure [Right Arm] 109/63 Blood Pressure [Left Arm] 103/64 Blood Pressure 125/81 O2 Sat by Pulse Oximetry 99 Physical Exam Oriented: Normal Respiratory: Normal Cardiovascular: Normal GI:Auscultation: Decreased GI:Palpation: Other (soft abdomen with diffuse Rt side tendernes ,BS hypo active .) Speech Pattern: Clear and Appropriate Laboratory and Diagnostics Result Diagrams: 02/14/23 05:17 02/14/23 11:12 Labs: Laboratory WBC 7.0 X10^3/uL (3.6-10.0) 02/14/23 05:17 RBC 4.35 X10^6/uL (3.5-5.4) 02/14/23 05:17 Hgb 12.7 g/dL (12.0-16.0) 02/14/23 05:17 Hct 37.1 % (36.0-47.0) 02/14/23 05:17 MCV 85.4 fL (80.0-100.0) 02/14/23 05:17 MCH 29.3 pg (27.0-34.0) 02/14/23 05:17 MCHC 34.3 g/dL (33.0-35.0) 02/14/23 05:17 RDW 12.4 % (11.6-16.5) 02/14/23 05:17 Plt Count 206 X10^3/uL (150.0-450.0) 02/14/23 05:17 Plt Count Comment Adequate (ADEQUATE) 02/14/23 05:17 MPV 8.8 fL (7.4-11.0) 02/14/23 05:17 Neut % (Auto) 48.4 % (42.0-75.0) 02/14/23 05:17 Lymph % (Auto) 21.7 % (21.0-51.0) 02/14/23 05:17 [place] % (Auto) 6.3 % (0.0-13.0) 02/14/23 05:17 Eos % (Auto) 23.1 % (0.9-2.9) H 02/14/23 05:17 Baso % (Auto) 0.5 % (0.2-1.0) 02/14/23 05:17 Neut # (Auto) 3.4 x10^3/uL (2.2-4.8) 02/14/23 05:17 Lymph # (Auto) 1.5 X10^3/uL (1.3-2.9) 02/14/23 05:17 [place] # (Auto) 0.4 x10^3/uL (0.3-0.8) 02/14/23 05:17 Eos # (Auto) 1.6 x10^3/uL (0.0-0.2) H 02/14/23 05:17 Baso # (Auto) 0.0 X10^3/uL (0.0-0.1) 02/14/23 05:17 Absolute Nucleated RBC 0.0 /100WBC 02/14/23 05:17 Total Counted 100 02/14/23 05:17 Neutrophils % (Manual) 49 % (39-76) 02/14/23 05:17 Band Neutrophils % 4 % (0-10) 02/14/23 05:17 Lymphocytes % (Manual) 24 % (13-43) 02/14/23 05:17 Monocytes % (Manual) 5 % (4-9) 02/14/23 05:17 Eosinophils % (Manual) 18 % (0-6) H 02/14/23 05:17 Plt Morphology Comment Normal (NORMAL) 02/14/23 05:17 RBC Morphology Normal (NORMAL) 02/14/23 05:17 Sodium 138 mmol/L (136-145) 02/14/23 05:17 Corrected Sodium TNP 02/14/23 05:17 Potassium 3.9 mmol/L (3.5-5.1) 02/14/23 11:12 Chloride 103 mmol/L (98-107) 02/14/23 05:17 Carbon Dioxide 29.8 mmol/L (21-32) 02/14/23 05:17 BUN 8 mg/dL (7-18) 02/14/23 05:17 Creatinine 0.62 mg/dL (0.55-1.02) 02/14/23 05:17 Est GFR (MDRD) Af Amer > 60 (>60) 02/14/23 05:17 Est GFR (MDRD) Non-Af > 60 (>60) 02/14/23 05:17 Glucose 83 mg/dL (65-99) 02/14/23 05:17 Calcium 8.1 mg/dL (8.5-10.1) L 02/14/23 05:17 Corrected Calcium TNP 02/14/23 05:17 Magnesium 1.8 mg/dL (2.0-2.9) L 02/14/23 05:17 Total Bilirubin 0.20 mg/dL (0.2-1.0) 02/14/23 05:17 AST 13 Units/L (15-37) L 02/14/23 05:17 ALT 20 Units/L (12-78) 02/14/23 05:17 Alkaline Phosphatase 46 Units/L (46-116) 02/14/23 05:17 Total Protein 6.1 g/dL (6.4-8.2) L 02/14/23 05:17 Albumin 3.5 g/dL (3.4-5.0) 02/14/23 05:17 Globulin 2.6 g/dL (2.5-4.5) 02/14/23 05:17 Albumin/Globulin Ratio 1.3 Ratio (1.1-2.1) 02/14/23 05:17 Amylase 36 Units/L (25-115) 02/13/23 15:00 Lipase 87 Units/L (73-393) 02/13/23 15:00 HCG, Qual Negative <10 mIU/mL 02/13/23 15:00 Specimen Type Clean catch urine 02/13/23 15:00 Urine Color Yellow (YELLOW) 02/13/23 15:00 Urine Appearance Clear (CLEAR) 02/13/23 15:00 Urine pH 8.0 (5.0 - 8.0) 02/13/23 15:00 Ur Specific [place] 1.010 (1.000-1.030) 02/13/23 15:00 Urine Protein Negative (NEGATIVE) 02/13/23 15:00 Urine Glucose (UA) Negative (NEGATIVE) 02/13/23 15:00 Urine Ketones Negative (NEGATIVE) 02/13/23 15:00 Urine Blood Negative (NEGATIVE) 02/13/23 15:00 Urine Nitrite Negative (NEGATIVE) 02/13/23 15:00 Urine Bilirubin Negative (NEGATIVE) 02/13/23 15:00 Urine Urobilinogen Normal (NORMAL) 02/13/23 15:00 Ur Leukocyte Esterase 1+ (NEGATIVE) 02/13/23 15:00 Urine RBC 0-2 /HPF (0-3) 02/13/23 15:00 Urine WBC 3-5 /HPF (0-5) 02/13/23 15:00 Ur Squamous Epith Cells Few /HPF (NEGATIVE) 02/13/23 15:00 Amorphous Sediment Trace /HPF (NEGATIVE) 02/13/23 15:00 Urine Bacteria Trace /HPF (NEGATIVE) 02/13/23 15:00 Ur Culture Indicated? No/not indicated 02/13/23 15:00 Assessment and Plan 1: abdominal pain , cholecystitis . for biliary scan in am 2: hypokalemia .had K supplement 3: severe constipation . had enemas today . Problem Patient Problems: Patient Problems (Updated 02/13/23 @ 16:12 by Aryan Miguel) Constipation (Acute) K59.00
[2023-02-14] MEDS ORDERED: LEVSIN/MAALOX/LIDOC VISC PO ONE (20:56)
[2023-02-14] MEDS ORDERED: MORPHINE SULFATE INJ 4 MG IVP ONE (20:59)
[2023-02-15] MEDS: TORADOL 30 MG VIAL IVP PRN ×3 (03:13→20:30)
[2023-02-15] MEDS: ZOFRAN INJ 4 MG VIAL IVP PRN (03:14)
[2023-02-15] MEDS: D5 1/2 NS 1,000 ML 1,000 ML IV SCH ×4 (05:51→17:54)
[2023-02-15 06:13] LABS: BASOPHILS % (AUTO) 0.3 % (0.2-1.0); EOSINOPHILS # (AUTO) 1.7 x10^3/uL (0.0-0.2); EOSINOPHILS % (AUTO) 20.7 % (0.9-2.9); HEMATOCRIT 37.2 % (36.0-47.0); HEMOGLOBIN 12.9 g/dL (12.0-16.0); LYMPHOCYTES # (AUTO) 1.5 X10^3/uL (1.3-2.9); MEAN CORPUSCULAR HEMOGLOBIN 29.3 pg (27.0-34.0); MEAN CORPUSCULAR HGB CONC 34.6 g/dL (33.0-35.0); MEAN CORPUSCULAR VOLUME 84.8 fL (80.0-100.0); MEAN PLATELET VOLUME 8.5 fL (7.4-11.0); MONOCYTES # (AUTO) 0.6 x10^3/uL (0.3-0.8); NEUTROPHILS # (AUTO) 4.4 x10^3/uL (2.2-4.8); RED BLOOD COUNT 4.38 X10^6/uL (3.5-5.4); RED CELL DISTRIBUTION WIDTH 12.2 % (11.6-16.5); WHITE BLOOD COUNT 8.2 X10^3/uL (3.6-10.0)
[2023-02-15 06:23] LABS: ALANINE AMINOTRANSFERASE 18 Units/L (12-78); ALBUMIN 3.3 g/dL (3.4-5.0); ALKALINE PHOSPHATASE 47 Units/L (46-116); ASPARTATE AMINO TRANSFERASE 11 Units/L (15-37); BLOOD UREA NITROGEN 5 mg/dL (7-18); CARBON DIOXIDE 28.6 mmol/L (21-32); CHLORIDE 107 mmol/L (98-107); COR CA(FOR HYPOALB) 8.6 mg/dL (8.5-10.1); CREATININE 0.59 mg/dL (0.55-1.02); MAGNESIUM 1.9 mg/dL (2.0-2.9); SODIUM 141 mmol/L (136-145); TOTAL PROTEIN 5.9 g/dL (6.4-8.2); eGFR NON BLACK RACES > 60 (>60)
[2023-02-15 06:33] LABS: PLATELET MORPHOLOGY COMMENT NORMAL (NORMAL)
[2023-02-15] MEDS: MORPHINE SULFATE INJ 2 MG INJ IVP PRN ×3 (11:33→23:29)
--- NOTE | 2023-02-15 12:13 | NM ---
HISTORYABDOMINAL/EPIGASTRIC PAIN, NAUSEA, FOOD INTOLERANCE.STUDYHIDA/HEPATOBILIARY SCAN W/EFCOMPARISONCT abdomen and pelvis 02/13/2023 and gallbladder ultrasound 02/04/20236684PTZPEEXIM8.5 mCi Tc-99m mebrofenin were injected intravenously. Planar images were obtained for 90 minutes.FINDINGSThere was prompt uptake and excretion by the liver. Activity is seen in the gallbladder by 10 minutes with no evidence of cystic duct obstruction. Activity is seen in the small bowel at 25 minutes with no evidence of common bile duct obstruction.At 60 minutes, the technologist gave the patient a fatty meal. Gallbladder ejection fraction was calculated at 33%. Normal gallbladder ejection fraction is greater than 35%. Low gallbladder ejection fraction can be seen with gallbladder dysfunction/biliary dyskinesiaIMPRESSION1. Findings suggesting gallbladder dysfunctionElectronically signed by: Travis Gordon (Feb 15, 2023 12:12:18)
[2023-02-15] MEDS: COLACE CAP 100 MG PO SCH ×2 (15:56→20:04)
[2023-02-15] MEDS: PROTONIX INJ 40 MG VIAL IVP SCH (15:56)
--- NOTE | 2023-02-15 15:57 | DR.PROGNOT ---
HOSPITAL PROGRESS NOTE Progress Note for Day of: Progress Note Date: 02/15/23 Chief Complaint Chief Complaint: still having abdominal pain . got worse during HIDA scan test . EF was 33% consistent with GB dysfunction K is corrected ,, Mg is still low.. CBC and LFTY are normal .. Past Medical Family Social History Past Med/Fam/Surg Hx: No changes since H&P Allergies: Allergies No Known Drug Allergies Allergy (Verified 02/11/23 09:24) Vital Signs Vital Signs: Temperature 98.2 F Pulse Rate [Brachial] 74 Pulse Rate 88 Respiratory Rate 18 Blood Pressure [Right Arm] 118/75 Blood Pressure [Left Arm] 103/64 Blood Pressure 125/81 O2 Sat by Pulse Oximetry 100 Physical Exam Oriented: Normal Respiratory: Normal Cardiovascular: Normal GI:Auscultation: Decreased GI:Palpation: Other (soft abdomen with diffuse Rt side tendernes ,BS hypo active .) Speech Pattern: Clear and Appropriate Laboratory and Diagnostics Result Diagrams: 02/15/23 05:24 02/15/23 05:24 Labs: Laboratory WBC 8.2 X10^3/uL (3.6-10.0) 02/15/23 05:24 RBC 4.38 X10^6/uL (3.5-5.4) 02/15/23 05:24 Hgb 12.9 g/dL (12.0-16.0) 02/15/23 05:24 Hct 37.2 % (36.0-47.0) 02/15/23 05:24 MCV 84.8 fL (80.0-100.0) 02/15/23 05:24 MCH 29.3 pg (27.0-34.0) 02/15/23 05:24 MCHC 34.6 g/dL (33.0-35.0) 02/15/23 05:24 RDW 12.2 % (11.6-16.5) 02/15/23 05:24 Plt Count 191 X10^3/uL (150.0-450.0) 02/15/23 05:24 Plt Count Comment Adequate (ADEQUATE) 02/15/23 05:24 MPV 8.5 fL (7.4-11.0) 02/15/23 05:24 Neut % (Auto) 54.0 % (42.0-75.0) 02/15/23 05:24 Lymph % (Auto) 18.0 % (21.0-51.0) L 02/15/23 05:24 Burnett % (Auto) 7.0 % (0.0-13.0) 02/15/23 05:24 Eos % (Auto) 20.7 % (0.9-2.9) H 02/15/23 05:24 Baso % (Auto) 0.3 % (0.2-1.0) 02/15/23 05:24 Neut # (Auto) 4.4 x10^3/uL (2.2-4.8) 02/15/23 05:24 Lymph # (Auto) 1.5 X10^3/uL (1.3-2.9) 02/15/23 05:24 Burnett # (Auto) 0.6 x10^3/uL (0.3-0.8) 02/15/23 05:24 Eos # (Auto) 1.7 x10^3/uL (0.0-0.2) H 02/15/23 05:24 Baso # (Auto) 0.0 X10^3/uL (0.0-0.1) 02/15/23 05:24 Absolute Nucleated RBC 0.1 /100WBC 02/15/23 05:24 Total Counted 100 02/15/23 05:24 Neutrophils % (Manual) 53 % (39-76) 02/15/23 05:24 Band Neutrophils % 4 % (0-10) 02/14/23 05:17 Lymphocytes % (Manual) 17 % (13-43) 02/15/23 05:24 Monocytes % (Manual) 8 % (4-9) 02/15/23 05:24 Eosinophils % (Manual) 22 % (0-6) H 02/15/23 05:24 Plt Morphology Comment Normal (NORMAL) 02/15/23 05:24 RBC Morphology Normal (NORMAL) 02/15/23 05:24 Sodium 141 mmol/L (136-145) 02/15/23 05:24 Corrected Sodium TNP 02/15/23 05:24 Potassium 4.2 mmol/L (3.5-5.1) 02/15/23 05:24 Chloride 107 mmol/L (98-107) 02/15/23 05:24 Carbon Dioxide 28.6 mmol/L (21-32) 02/15/23 05:24 BUN 5 mg/dL (7-18) L 02/15/23 05:24 Creatinine 0.59 mg/dL (0.55-1.02) 02/15/23 05:24 Est GFR (MDRD) Af Amer > 60 (>60) 02/15/23 05:24 Est GFR (MDRD) Non-Af > 60 (>60) 02/15/23 05:24 Glucose 88 mg/dL (65-99) 02/15/23 05:24 Calcium 8.0 mg/dL (8.5-10.1) L 02/15/23 05:24 Corrected Calcium 8.6 mg/dL (8.5-10.1) 02/15/23 05:24 Magnesium 1.9 mg/dL (2.0-2.9) L 02/15/23 05:24 Total Bilirubin 0.20 mg/dL (0.2-1.0) 02/15/23 05:24 AST 11 Units/L (15-37) L 02/15/23 05:24 ALT 18 Units/L (12-78) 02/15/23 05:24 Alkaline Phosphatase 47 Units/L (46-116) 02/15/23 05:24 Total Protein 5.9 g/dL (6.4-8.2) L 02/15/23 05:24 Albumin 3.3 g/dL (3.4-5.0) L 02/15/23 05:24 Globulin 2.6 g/dL (2.5-4.5) 02/15/23 05:24 Albumin/Globulin Ratio 1.3 Ratio (1.1-2.1) 02/15/23 05:24 Amylase 36 Units/L (25-115) 02/13/23 15:00 Lipase 87 Units/L (73-393) 02/13/23 15:00 HCG, Qual Negative <10 mIU/mL 02/13/23 15:00 Specimen Type Clean catch urine 02/13/23 15:00 Urine Color Yellow (YELLOW) 02/13/23 15:00 Urine Appearance Clear (CLEAR) 02/13/23 15:00 Urine pH 8.0 (5.0 - 8.0) 02/13/23 15:00 Ur Specific [place] 1.010 (1.000-1.030) 02/13/23 15:00 Urine Protein Negative (NEGATIVE) 02/13/23 15:00 Urine Glucose (UA) Negative (NEGATIVE) 02/13/23 15:00 Urine Ketones Negative (NEGATIVE) 02/13/23 15:00 Urine Blood Negative (NEGATIVE) 02/13/23 15:00 Urine Nitrite Negative (NEGATIVE) 02/13/23 15:00 Urine Bilirubin Negative (NEGATIVE) 02/13/23 15:00 Urine Urobilinogen Normal (NORMAL) 02/13/23 15:00 Ur Leukocyte Esterase 1+ (NEGATIVE) 02/13/23 15:00 Urine RBC 0-2 /HPF (0-3) 02/13/23 15:00 Urine WBC 3-5 /HPF (0-5) 02/13/23 15:00 Ur Squamous Epith Cells Few /HPF (NEGATIVE) 02/13/23 15:00 Amorphous Sediment Trace /HPF (NEGATIVE) 02/13/23 15:00 Urine Bacteria Trace /HPF (NEGATIVE) 02/13/23 15:00 Ur Culture Indicated? No/not indicated 02/13/23 15:00 Assessment and Plan 1: GB dysfunction. for lap elizabeth in am . d/w Pt the procedure in details . all risks were explained . 2: low Mg 3: severe constipation . to add stool softener .. Problem Patient Problems: Patient Problems (Updated 02/13/23 @ 16:12 by Aryan Miguel) Constipation (Acute) K59.00
--- NOTE | 2023-02-15 22:23 | EKG ---
Test Reason : surgery Blood Pressure : */* mmHG Vent. Rate : 76 BPM Atrial Rate : 76 BPM P-R Int : 156 ms QRS Dur : 86 ms QT Int : 370 ms P-R-T Axes : 32 69 56 degrees QTc Int : 416 ms Normal sinus rhythm with sinus arrhythmia Normal ECG When compared with ECG of 07-FEB-2023 09:12, No significant change was found Confirmed by David Davenport ([id number]) on 02/18/2023 10:30:52 AM Referred By: Confirmed By: David Davenport
[2023-02-16] MEDS: D5 1/2 NS 1,000 ML 1,000 ML IV SCH ×5 (01:14→20:56)
[2023-02-16] MEDS: ZOFRAN INJ 4 MG VIAL IVP PRN ×3 (04:16→23:18)
[2023-02-16 06:43] LABS: BASOPHILS % (AUTO) 0.3 % (0.2-1.0); EOSINOPHILS # (AUTO) 1.9 x10^3/uL (0.0-0.2); EOSINOPHILS % (AUTO) 24.1 % (0.9-2.9); HEMATOCRIT 33.4 % (36.0-47.0); HEMOGLOBIN 11.8 g/dL (12.0-16.0); LYMPHOCYTES # (AUTO) 2.3 X10^3/uL (1.3-2.9); MEAN CORPUSCULAR HEMOGLOBIN 29.9 pg (27.0-34.0); MEAN CORPUSCULAR HGB CONC 35.2 g/dL (33.0-35.0); MEAN CORPUSCULAR VOLUME 84.9 fL (80.0-100.0); MEAN PLATELET VOLUME 8.8 fL (7.4-11.0); MONOCYTES # (AUTO) 0.6 x10^3/uL (0.3-0.8); NEUTROPHILS # (AUTO) 3.2 x10^3/uL (2.2-4.8); NEUTROPHILS % (AUTO) 39.6 % (42.0-75.0); RED BLOOD COUNT 3.94 X10^6/uL (3.5-5.4); RED CELL DISTRIBUTION WIDTH 12.3 % (11.6-16.5); WHITE BLOOD COUNT 8.1 X10^3/uL (3.6-10.0)
[2023-02-16 07:01] LABS: ALANINE AMINOTRANSFERASE 17 Units/L (12-78); ALBUMIN 2.9 g/dL (3.4-5.0); ALKALINE PHOSPHATASE 44 Units/L (46-116); ASPARTATE AMINO TRANSFERASE 12 Units/L (15-37); BLOOD UREA NITROGEN 5 mg/dL (7-18); CALCIUM 8.2 mg/dL (8.5-10.1); CARBON DIOXIDE 29.4 mmol/L (21-32); CHLORIDE 107 mmol/L (98-107); COR CA(FOR HYPOALB) 9.1 mg/dL (8.5-10.1); SODIUM 142 mmol/L (136-145); TOTAL PROTEIN 5.3 g/dL (6.4-8.2); eGFR NON BLACK RACES > 60 (>60)
[2023-02-16 07:09] LABS: BAND NEUTROPHILS % 1 % (0-10)
[2023-02-16 07:10] LABS: BASOPHILS % (MANUAL) 1 % (0-1); PLATELET MORPHOLOGY COMMENT NORMAL (NORMAL)
[2023-02-16] MEDS: TORADOL 30 MG VIAL IVP PRN ×2 (07:11→19:44)
[2023-02-16] MEDS: PROTONIX INJ 40 MG VIAL IVP SCH ×2 (07:11→08:59)
--- NOTE | 2023-02-16 08:51 | RAD ---
HISTORYSURGERY HEART MURMUR, APPENDIXSTUDYCHEST, 1 VIEWCOMPARISONNone availableFINDINGSThe trachea is midline. The cardiac silhouette is unremarkable. The lungs are clear without focal infiltrate or effusion. The bony thorax is unremarkable.IMPRESSIONNo acute cardiopulmonary findings .Electronically signed by: Diandra Maria (Feb 16, 2023 08:50:18)
[2023-02-16] MEDS ORDERED: NS 100 ML IV 100 ML ONE (08:57)
[2023-02-16] MEDS ORDERED: LR 1,000 ML IV 1,000 ML IV ONE ×2 (08:57→10:15)
[2023-02-16] MEDS ORDERED: ANCEF VIAL 1 GRAM ONE (08:57)
[2023-02-16] MEDS ORDERED: ROBINUL ONE (09:18)
[2023-02-16] MEDS ORDERED: FENTANYL VIAL INJ 100 mcg ONE ×2 (09:18→09:58)
[2023-02-16] MEDS ORDERED: BRIDION ONE (09:18)
[2023-02-16] MEDS ORDERED: DIPRIVAN VIAL 20 ML ONE (09:18)
[2023-02-16] MEDS ORDERED: MAGNESIUM SULFATE 50% INJ VIAL ONE (09:18)
[2023-02-16] MEDS ORDERED: DECADRON INJ ONE (09:18)
[2023-02-16] MEDS ORDERED: VERSED ONE (09:18)
[2023-02-16] MEDS ORDERED: ZOFRAN INJ 4 MG VIAL ONE (09:18)
[2023-02-16] MEDS ORDERED: PEPCID 20 MG VIAL ONE (09:18)
[2023-02-16] MEDS ORDERED: ZEMURON 100 MG VIAL ONE (09:18)
[2023-02-16] MEDS ORDERED: NEO-SYNEPHRINE INJ ONE (09:18)
[2023-02-16] MEDS ORDERED: BACTROBAN TOPICAL OINT ONE (09:22)
[2023-02-16] MEDS ORDERED: BREVIBLOC ONE (10:03)
[2023-02-16] MEDS ORDERED: ZOFRAN INJ 4 MG VIAL IVP PRN (10:28)
[2023-02-16] MEDS ORDERED: BARHEMSYS INJ IVP PRN (10:28)
[2023-02-16] MEDS ORDERED: REGLAN INJ 10 MG VIAL IVP PRN (10:28)
[2023-02-16] MEDS ORDERED: BENADRYL INJ 50 MG VIAL IVP PRN (10:28)
[2023-02-16] MEDS ORDERED: NORMODYNE INJ 20 MG VIAL ONE (10:39)
[2023-02-16] MEDS ORDERED: BARHEMSYS INJ ONE (11:23)
[2023-02-16] MEDS ORDERED: DILAUDID INJ ONE ×2 (11:23→11:34)
[2023-02-16] MEDS: DILAUDID INJ IVP PRN ×4 (11:27→11:42)
[2023-02-16] MEDS: MORPHINE SULFATE INJ 2 MG INJ IVP PRN ×2 (12:22→23:19)
[2023-02-16] MEDS ORDERED: MYLICON TAB 80 MG CHEW PO PRN (13:25)
[2023-02-16] MEDS: ANCEF VIAL 1 GRAM IVP SCH ×2 (13:47→21:16)
[2023-02-16] MEDS: K-DUR TAB 20 MEQ PO PRN (13:48)
[2023-02-16] MEDS: MAGNESIUM SULFATE 1 GRAM/100 mL PREMIX 1 G/100 ML BAG IV PRN ×2 (16:10→17:37)
[2023-02-16] MEDS: COLACE CAP 100 MG PO SCH (20:51)
[2023-02-17] MEDS: D5 1/2 NS 1,000 ML 1,000 ML IV SCH ×2 (02:27→02:29)
[2023-02-17 04:23] VITALS: BP 95/50
[2023-02-17] MEDS: ANCEF VIAL 1 GRAM IVP SCH (05:15)
[2023-02-17] MEDS: TORADOL 30 MG VIAL IVP PRN (05:45)
[2023-02-17 06:24] LABS: BASOPHILS % (AUTO) 0.3 % (0.2-1.0); EOSINOPHILS # (AUTO) 0.7 x10^3/uL (0.0-0.2); HEMATOCRIT 32.2 % (36.0-47.0); HEMOGLOBIN 11.2 g/dL (12.0-16.0); LYMPHOCYTES % (AUTO) 18.1 % (21.0-51.0); MEAN CORPUSCULAR HEMOGLOBIN 29.6 pg (27.0-34.0); MEAN CORPUSCULAR HGB CONC 34.9 g/dL (33.0-35.0); MEAN CORPUSCULAR VOLUME 84.7 fL (80.0-100.0); MEAN PLATELET VOLUME 8.2 fL (7.4-11.0); MONOCYTES # (AUTO) 0.7 x10^3/uL (0.3-0.8); MONOCYTES % (AUTO) 6.6 % (0.0-13.0); NEUTROPHILS # (AUTO) 7.7 x10^3/uL (2.2-4.8); RED CELL DISTRIBUTION WIDTH 12.4 % (11.6-16.5); WHITE BLOOD COUNT 11.2 X10^3/uL (3.6-10.0)
[2023-02-17 06:43] LABS: ALANINE AMINOTRANSFERASE 26 Units/L (12-78); ALBUMIN 2.9 g/dL (3.4-5.0); ALKALINE PHOSPHATASE 46 Units/L (46-116); ASPARTATE AMINO TRANSFERASE 20 Units/L (15-37); BLOOD UREA NITROGEN 3 mg/dL (7-18); CARBON DIOXIDE 27.4 mmol/L (21-32); CHLORIDE 107 mmol/L (98-107); COR CA(FOR HYPOALB) 8.9 mg/dL (8.5-10.1); COR NA(FOR HYPERGLY) 141 mmol/L (136-145); CREATININE 0.53 mg/dL (0.55-1.02); SODIUM 141 mmol/L (136-145); TOTAL PROTEIN 5.5 g/dL (6.4-8.2); eGFR NON BLACK RACES > 60 (>60)
== END 2023-02-17 09:15 | disposition home or self-care (01) ==
LOC: ER 14:47 → OBS 14:47 → MED/SURG 14:47
PROVIDERS: ADMIT Surgery; ATTEND Surgery
DX: K59.09 Other constipation; R10.84 Generalized abdominal pain; K82.8 Other specified diseases of gallbladder; K66.0 Peritoneal adhesions (postprocedural) (postinfection)

== ENCOUNTER 2025-08-25 00:17 | Observation (INO) ==
[2025-08-25 00:37] LABS: BLOOD/HEMOGLOBIN,URINE NEGATIVE (NEGATIVE); LEUKOCYTE ESTERASE ,URINE NEGATIVE (NEGATIVE); NITRITES,URINE NEGATIVE (NEGATIVE)
[2025-08-25 00:55] LABS: CREATININE 0.74 mg/dL (0.55-1.02); eGFR NON BLACK RACES > 60 (>60)
--- NOTE | 2025-08-25 00:56 | ED.ABDFE ---
HPI Time Seen Time Seen by Provider: 08/25/25 00:55 PCP Primary Care Physician: YAJAIRA WILEY HPI Comment HPI Comment: Patient is a 25-year-old who presents to ED with complaint of abdominal pain x 5 weeks. Patient states that the abdominal pain is in the upper and lower abdomen. She states that it is intermittent, throbbing, 5/10. She states that it is predominantly in the upper part of her abdomen and radiates downwards. She has been seen and evaluated by her PCP over this 5-week period. She was given Carafate. Protonix for suspected PUD. However her symptoms did not get any better. No abdominal imaging was performed. Her PCP started empiric treatment for H. pylori. Patient states she is almost finished with the triple therapy and her pain is not getting any better. She has an appointment scheduled for her GI specialist at the end of the month however she states she cannot wait that long and needs to find out what is causing her pain. She has a history of cholecystectomy and appendectomy. She was seen by her geographic information scientist and an ultrasound was performed and was told that her uterus and ovaries were normal. She has not been taking any pain meds for her symptoms. She denies any fever, chills, NVD, dysuria, hematuria, hematochezia, melena, constipation, abnormal vaginal bleeding, or pain with sex. Complaint Chief Complaint:: PT AMBULATORY IN ED WITH C/O MID UPPER AND MID LOWER ABD PAIN X 5 WEEKS. PT STATES SHE HAS BEEN TO PRIMARY AND BEING TREATED FOR H.PYLORI BUT PAIN IS NOT GETTING BETTER BUT GETTING WORSE. STATES SHE CAN'T GET IN TO SEE GASTRO TILL THE END OF THE MONTH. COVID-19 Coronavirus risk:travel/contact w/high risk person: No Has patient experienced Coronavirus symptoms: No Source History Provided: Patient Mode of arrival Mode of Arrival: Ambulatory Timing Onset of Chief Complaint: 07/21/25 PMH PMH Past Medical History: Yes Past Medical History: PUD Past Surgical History: Yes Surgical History: Appendectomy and Cholecystectomy Family History History of Family Medical Conditions: Yes Family Medical History: Diabetes Mellitus, Cancer, [place] and Coronary Artery Disease Family Medical History Comment: CROHNS Social History Does patient currently use any type of tobacco product: No Have you used tobacco products in the last 12 months: No Type of Tobacco Use: None Does any household member use tobacco: No Alcohol Use: None Do you use any recreational Drugs:: No Lives With: Family Lives Where: Home Travel Risk Coronavirus risk:travel/contact w/high risk person: No Has patient experienced Coronavirus symptoms: No Infectious screening In the last 2 months have you had wt loss of >10#?: NO Have you had fever, night sweats or hemotysis?: No Have you traveled outside the country in the last 6 months?: No Isolation: Standard PE Vital Signs Vitals: Vital Signs Temperature 97.6 F Pulse Rate 97 Respiratory Rate 20 Blood Pressure 121/76 O2 Sat by Pulse Oximetry 100 Other Exam Other Exam: GEN: Sitting comfortably in the bed and in no acute distress. She has knees to chest and is holding her belly. LUNGS: CTABL HEART: RRR ABD: soft, non distended, ttp in the RUQ and RLQ. No rebound tenderness. No guarding. COURSE Treatment Treatment: CBC, CMP, lipase, UA, and Beta HCG were ordered. She was given IV Tylenol for pain. CT abdomen pelvis with and without contrast was ordered. [facility] Labs Reviewed 08/25/25 00:36 10 00:36 Laboratory: WBC 17.4 X10^3/uL (3.6-10.0) H 08/25/25 00:36 RBC 5.02 X10^6/uL (3.5-5.4) 08/25/25 00:36 Hgb 14.5 g/dL (12.0-16.0) 08/25/25 00:36 Hct 43.0 % (36.0-47.0) 08/25/25 00:36 MCV 85.6 fL (80.0-100.0) 08/25/25 00:36 MCH 28.8 pg (27.0-34.0) 08/25/25 00:36 MCHC 33.7 g/dL (33.0-35.0) 08/25/25 00:36 RDW 12.9 % (11.6-16.5) 08/25/25 00:36 Plt Count 255 X10^3/uL (150.0-450.0) 08/25/25 00:36 Plt Count Comment Adequate (ADEQUATE) 08/25/25 00:36 MPV 9.3 fL (7.4-11.0) 08/25/25 00:36 Neut % (Auto) 30.6 % (42.0-75.0) L 08/25/25 00:36 Lymph % (Auto) 22.1 % (21.0-51.0) 10 00:36 [place]ador % (Auto) 4.9 % (0.0-13.0) 08/25/25 00:36 Eos % (Auto) 42.2 % (0.9-2.9) H 08/25/25 00:36 Baso % (Auto) 0.2 % (0.2-1.0) 08/25/25 00:36 Neut # (Auto) 5.3 x10^3/uL (2.2-4.8) H 08/25/25 00:36 Lymph # (Auto) 3.8 X10^3/uL (1.3-2.9) H 08/25/25 00:36 [place] # (Auto) 0.8 x10^3/uL (0.3-0.8) 08/25/25 00:36 Eos # (Auto) 7.3 x10^3/uL (0.0-0.2) H 08/25/25 00:36 Baso # (Auto) 0.0 X10^3/uL (0.0-0.1) 08/25/25 00:36 Absolute Nucleated RBC 0.1 /100WBC 08/25/25 00:36 Total Counted 100 08/25/25 00:36 Neutrophils % (Manual) 29 % (39-76) L 08/25/25 00:36 Lymphocytes % (Manual) 23 % (13-43) 08/25/25 00:36 Monocytes % (Manual) 5 % (4-9) 08/25/25 00:36 Eosinophils % (Manual) 43 % (0-6) H 08/25/25 00:36 Plt Morphology Comment Normal (NORMAL) 08/25/25 00:36 RBC Morphology Normal (NORMAL) 08/25/25 00:36 Sodium 140 mmol/L (136-145) 08/25/25 00:36 Corrected Sodium TNP 08/25/25 00:36 Potassium 3.5 mmol/L (3.5-5.1) 08/25/25 00:36 Chloride 105 mmol/L (98-107) 08/25/25 00:36 Carbon Dioxide 27.2 mmol/L (21-32) 08/25/25 00:36 BUN 10 mg/dL (7-18) 08/25/25 00:36 Creatinine 0.74 mg/dL (0.55-1.02) 08/25/25 00:36 Est GFR (MDRD) Af Amer > 60 (>60) 08/25/25 00:36 Est GFR (MDRD) Non-Af > 60 (>60) 08/25/25 00:36 Glucose 86 mg/dL (65-99) 08/25/25 00:36 Lactic Acid 0.9 mmol/L (0.4-2.0) 08/25/25 02:10 Calcium 9.0 mg/dL (8.5-10.1) 08/25/25 00:36 Corrected Calcium TNP 08/25/25 00:36 Total Bilirubin 0.50 mg/dL (0.2-1.0) 08/25/25 00:36 AST 15 Units/L (15-37) 08/25/25 00:36 ALT 18 Units/L (12-78) 08/25/25 00:36 Alkaline Phosphatase 56 Units/L (46-116) 08/25/25 00:36 Total Protein 7.1 g/dL (6.4-8.2) 08/25/25 00:36 Albumin 4.0 g/dL (3.4-5.0) 08/25/25 00:36 Globulin 3.1 g/dL (2.5-4.5) 08/25/25 00:36 Albumin/Globulin Ratio 1.3 Ratio (1.1-2.1) 08/25/25 00:36 Amylase 52 Units/L (25-115) 08/25/25 00:36 Lipase 41 Units/L (16-77) 08/25/25 00:36 HCG, Qual Negative <10 mIU/mL 08/25/25 00:36 Specimen Type Clean catch urine 08/25/25 00:26 Urine Color Yellow (YELLOW) 08/25/25 00:26 Urine Appearance Hazy (CLEAR) 08/25/25 00:26 Urine pH 7.0 (5.0 - 8.0) 08/25/25 00:26 Ur Specific [place] 1.020 (1.000-1.030) 08/25/25 00: Urine Protein 1+ (NEGATIVE) 08/25/25 00: Urine Glucose (UA) Negative (NEGATIVE) 08/25/25 00: Urine Ketones 1+ (NEGATIVE) 08/25/25 00: Urine Blood Negative (NEGATIVE) 08/25/25: Urine Nitrite Negative (NEGATIVE) 08/25/25: Urine Bilirubin Negative (NEGATIVE) 08/25/25 00: Urine Urobilinogen Normal (NORMAL) 08/25/25 00: Ur Leukocyte Esterase Negative (NEGATIVE) 08/25/25 00: Urine RBC 0-2 /HPF (0-3) 08/25/25: Urine WBC 0-2 /HPF (0-5) 08/25/25: Ur Squamous Epith Cells Few /HPF (NEGATIVE) 08/25/25: Amorphous Sediment 2+ /HPF (NEGATIVE) 08/25/25 00: Urine Bacteria Trace /HPF (NEGATIVE) 08/25/25 00: Ur Culture Indicated? No/not indicated 08/25/25 00: XRAY X-ray Results: Name: ARLINE DARD[facility]#: [id number] : 2000 Sex: F Location: ER Order Number(s): [id number] Procedure(s):CT ABDOMEN/PELVIS W&W/O CON Ordering Physician: Rohan Aburto Primary Care: Yajaira Wiley Service Date: 08/25/25 Service Time: 0113 EXAM: CT ABDOMEN AND PELVIS WITHOUT CONTRAST HISTORY: ABD PAIN; C/O MID UPPER AND MID LOWER ABD PAIN X 5 WEEKS. HX: HPYLORI SX: APPENDECTOMY, GB ; 350 OMNIPAQUE, 100 ML COMPARISON: 02/13/2023. TECHNIQUE: Axial CT images were obtained through the abdomen and pelvis without contrast. Coronal reformatted images were included. All CT scans at this facility use dose modulation, iterative reconstruction, and/or weight based dosing when appropriate to reduce radiation dose to as low as reasonably achievable. FINDINGS: Please note that without the use of intravenous contrast, evaluation of organ parenchyma is limited. LOWER THORAX: Normal ABDOMEN: LIVER: Normal GALLBLADDER: Gallbladder surgically absent SPLEEN: Normal PANCREAS: Normal KIDNEYS: Punctate nonobstructing left renal calculus. ADRENAL GLANDS: Normal GI TRACT: Normal course and caliber LYMPH NODES: No enlarged nodes VESSELS: Normal PERITONEUM / RETROPERITONEUM: No free gas PELVIS: BLADDER: Normal GENITALS: Small amount of pelvic ascites and free fluid. BONES: Normal IMPRESSION: 1. Small amount of pelvic ascites and free fluid. 2. Punctate nonobstructing left renal calculus. No hydronephrosis. THIS IS AN ELECTRONICALLY VERIFIED FINAL REPORT 08/25/2025 3:16 AM - Electronically signed by Jacinta Noel MD Report Electronically signed: 08/25/25 [id number] CC: Rohan Aburto Opioid Opioid Risk Tool Age (Blayne box if 16-45): Yes History of Preadolescent Sexual Abuse: No Total: 1 Total Score Risk Category: Low Risk Copyright: Bc GARG predicting aberrant behaviors Discharge Plan Diagnosis Discharge Problem: Sepsis Discharge Plan Patient Disposition: ADMITTED INPATIENT Condition: Stable Prescriptions: No Action amoxicillin 500 mg capsule 1,000 mg PO BID clarithromycin 500 mg tablet 500 mg PO BID sucralfate 1 gram tablet 1 g PO QID dicyclomine 10 mg Capsule 10 mg PO Q8H PRNQty: 30 1RF pantoprazole 40 mg Tablet,Delayed Release (Dr/Ec) 40 mg PO BID Qty: 60 1RF Health Concerns: Post Hospitalization: new medications and changes needed to prevent readmission or further decline. Pt educated and given instructions on all concerns. Plan of Treatment: Continue with present treatment and follow up plan. Pt is to keep follow up appointment as instructed and take medications as ordered. Orders to Discharge Patient Discharge Orders: Transfer (Routine); Ordered 08/25/25 Ordered By: Rohan Aburto Follow ups/Referrals Follow ups/Referrals: Yajaira Wiley [Primary Care Provider, Unknown] - 3 days Instructions Stand Alone Forms: Find Help Web Site, Post Hospital Follow Up Care Print Language: BELARUSIAN Provider Note Additional Notes Patient is a 25-year-old female presented with abdominal pain x 5 weeks. She has been treated with Quadruple therapy for suspected H. pylori.However she states that her symptoms are not getting any better. Workup in ED did reveal leukocytosis with elevated heart rate which met criteria for SIRS. With suspected infection thyroiditis sepsis. Sepsis protocol was then initiated. She was started on IV fluids, IV antibiotics, blood cultures were obtained. CT abdomen pelvis was obtained with and without contrast. Revealed free fluid in the abdomen. Otherwise no acute pathology identified. Consulted the hospitalist who agreed to admit the patient for observation and possible transvaginal ultrasound on Tuesday.
[2025-08-25 01:05] LABS: MEAN PLATELET VOLUME 9.3 fL (7.4-11.0); RED CELL DISTRIBUTION WIDTH 12.9 % (11.6-16.5)
[2025-08-25] MEDS: OFIRMEV IV 1000 MG VIAL 1,000 MG/100 ML VIAL IV ONE (01:10)
[2025-08-25 01:14] LABS: APPEARANCE,URINE HAZY (CLEAR); SQUAMOUS EPITHELIAL CELL,UR FEW /HPF (NEGATIVE)
[2025-08-25 01:19] LABS: SERUM PREGNANCY TEST, QUAL NEGATIVE <10 mIU/mL
[2025-08-25 01:25] LABS: PLATELET MORPHOLOGY COMMENT NORMAL (NORMAL)
[2025-08-25] MEDS: NS 1,000 ML IV 1,000 ML IV ONE (02:29)
--- NOTE | 2025-08-25 03:20 | CT ---
EXAM: CT ABDOMEN AND PELVIS WITHOUT CONTRAST HISTORY: ABD PAIN; C/O MID UPPER AND MID LOWER ABD PAIN X 5 WEEKS. HX: HPYLORI SX: APPENDECTOMY, GB ; 350 OMNIPAQUE, 100 ML COMPARISON: 02/13/2023. TECHNIQUE: Axial CT images were obtained through the abdomen and pelvis without contrast. Coronal reformatted images were included. All CT scans at this facility use dose modulation, iterative reconstruction, and/or weight based dosing when appropriate to reduce radiation dose to as low as reasonably achievable. FINDINGS: Please note that without the use of intravenous contrast, evaluation of organ parenchyma is limited. LOWER THORAX: Normal ABDOMEN: LIVER: Normal GALLBLADDER: Gallbladder surgically absent SPLEEN: Normal PANCREAS: Normal KIDNEYS: Punctate nonobstructing left renal calculus. ADRENAL GLANDS: Normal GI TRACT: Normal course and caliber LYMPH NODES: No enlarged nodes VESSELS: Normal PERITONEUM / RETROPERITONEUM: No free gas PELVIS: BLADDER: Normal GENITALS: Small amount of pelvic ascites and free fluid. BONES: Normal IMPRESSION: 1. Small amount of pelvic ascites and free fluid. 2. Punctate nonobstructing left renal calculus. No hydronephrosis. THIS IS AN ELECTRONICALLY VERIFIED FINAL REPORT 08/25/2025 3:16 AM - Electronically signed by Jacinta Noel MD
[2025-08-25] MEDS: ZOSYN VIAL 3.375 GRAMS 3.375 G in NS 100 ML IV 100 ML IV SCH (03:51)
[2025-08-25] MEDS: NS 1,000 ML IV 1,000 ML IV SCH (03:51)
[2025-08-25] MEDS ORDERED: NS 250 ML IV 25 ML IV PRN (04:36)
[2025-08-25] MEDS ORDERED: NORCO 5/325 MG TAB PO PRN (04:36)
[2025-08-25] MEDS: CONSULT PHARMACY - POTASSIUM & MAGNESIUM XX SCH (05:11)
[2025-08-25] MEDS: PHARMACY CONSULT - VANCOMYCIN XX SCH (05:11)
[2025-08-25 05:38] LABS: MEAN PLATELET VOLUME 8.7 fL (7.4-11.0); RED CELL DISTRIBUTION WIDTH 12.6 % (11.6-16.5)
[2025-08-25] MEDS: VANCOMYCIN HCL 250 MG, VANCOMYCIN HCL 1 G in D5W 250 ML IV 250 ML IV ONE (05:43)
[2025-08-25 05:50] LABS: CREATININE 0.70 mg/dL (0.55-1.02); eGFR NON BLACK RACES > 60 (>60)
[2025-08-25 06:09] LABS: PLATELET MORPHOLOGY COMMENT NORMAL (NORMAL)
[2025-08-25 06:18] VITALS: BMI 27.6
[2025-08-25] MEDS: K-DUR TAB 20 MEQ PO ONE (06:22)
--- NOTE | 2025-08-25 08:01 | EKG ---
Test Reason : CHEST PAIN Blood Pressure : */* mmHG Vent. Rate : 92 BPM Atrial Rate : 92 BPM P-R Int : 166 ms QRS Dur : 84 ms QT Int : 346 ms P-R-T Axes : 70 65 52 degrees QTc Int : 427 ms Normal sinus rhythm Normal ECG When compared with ECG of 15-FEB-2023 22:16, No significant change was found Confirmed by Melvin Jarrett MD ([id number]) on 08/25/2025 9:46:36 AM Referred By: Confirmed By: Melvin Jarrett MD
[2025-08-25] MEDS: TYLENOL 325 MG TAB PO PRN (09:48)
--- NOTE | 2025-08-25 11:44 | DR.H&P ---
H&P History & Physical for Day of: H&P Date: 08/25/25 Chief Complaint Chief Complaint: abdominal pain History of Present Illness History of Present Illness: Patient is a 25-year-old female with no pertinent past medical history presented with worsening abdominal pain for the past 5 weeks. She was being treated outpatient for gastritis and H. pylori but continued to have severe pain. ER workup included labs which showed elevated WBC, normal lactic acid, normal lipase. CTAP without contrast showed some pelvic ascites and free fluid but no other abnormalities. She was started on IV antibiotics and fluids. She is feeling slightly better this morning. She did have a reaction with vancomycin so it was stopped. She had some facial swelling and stiffness. She still has some epigastric pain but not as severe as yesterday. She reports having EGD few years ago which was fairly normal. She also had a colonoscopy over 10 years ago as she was having GI symptoms then and does have a family history of Crohn's disease and ulcerative colitis. She was scheduled to see Dr. Mcbride later this month for outpatient workup. She also did see [facility]OT[facility] M[facility]IST APPRENTICE few months ago and had normal exam. Labs/imaging reviewed: - WBC 13.5 hemoglobin 12.7 platelet 212 potassium 3.7 creatinine 0.70 - Lactic acid 0.9 lipase normal UA negative - CTAP without contrast reviewed Plan: Admit to MedSurg. Continue hydration. Continue IV Zosyn, stop Vancomycin. Follow pending cultures. Add IV Protonix. Continue pain control. Stool H. pylori test pending. Order CTAP with contrast to assess further. Consult Dr. Mcbride as patient was scheduled to see him outpatient for possible EGD. Replace electrolytes as per protocol. Monitor a.m. labs and imaging. Time spent for clinical assessment, reviewing labs and imaging, physical exam, decision making and documentation greater than 45 minutes. Past Medical History Past Medical History: PUD Past Surgical History Surgical History: Appendectomy and Cholecystectomy Family History Family Medical History: Diabetes Mellitus, Cancer and Coronary Artery Disease Social History Does patient currently use any type of tobacco product: Yes Have you used tobacco products in the last 12 months: No Type of Tobacco Use: Vape Does any household member use tobacco: No Alcohol Use: None Drug Use: None Medications Home Medications: Home Medications Medication Instructions Recorded Confirmed Type amoxicillin 500 mg capsule 1,000 mg PO BID 08/25/25 History clarithromycin 500 mg tablet 500 mg PO BID 08/25/25 History sucralfate 1 gram tablet 1 g PO QID 08/25/25 08/25/25 History Allergies Allergies Allergy/AdvReac Type Severity Reaction Status Date / Time No Known Drug Allergies Allergy Verified 08/25/25 00:33 Labs 08/25/25 05:11 08/25/25 05:11 Labs: Laboratory WBC 13.5 X10^3/uL (3.6-10.0) H 08/25/25 05:11 RBC 4.40 X10^6/uL (3.5-5.4) 08/25/25 05:11 Hgb 12.7 g/dL (12.0-16.0) 08/25/25 05:11 Hct 37.8 % (36.0-47.0) 08/25/25 05:11 MCV 85.9 fL (80.0-100.0) 08/25/25 05:11 MCH 29.0 pg (27.0-34.0) 08/25/25 05:11 MCHC 33.7 g/dL (33.0-35.0) 08/25/25 05:11 RDW 12.6 % (11.6-16.5) 08/25/25 05:11 Plt Count 212 X10^3/uL (150.0-450.0) 08/25/25 05:11 Plt Count Comment Adequate (ADEQUATE) 08/25/25 05:11 MPV 8.7 fL (7.4-11.0) 08/25/25 05:11 Neut % (Auto) 32.9 % (42.0-75.0) L 08/25/25 05:11 Lymph % (Auto) 20.8 % (21.0-51.0) L 08/25/25 05:11 [place] % (Auto) 5.3 % (0.0-13.0) 08/25/25 05:11 Eos % (Auto) 40.8 % (0.9-2.9) H 08/25/25 05:11 Baso % (Auto) 0.2 % (0.2-1.0) 08/25/25 05:11 Neut # (Auto) 4.4 x10^3/uL (2.2-4.8) 08/25/25 05:11 Lymph # (Auto) 2.8 X10^3/uL (1.3-2.9) 08/25/25 05:11 [place] # (Auto) 0.7 x10^3/uL (0.3-0.8) 08/25/25 05:11 Eos # (Auto) 5.5 x10^3/uL (0.0-0.2) H 08/25/25 05:11 Baso # (Auto) 0.0 X10^3/uL (0.0-0.1) 08/25/25 05:11 Absolute Nucleated RBC 0.1 /100WBC 08/25/25 05:11 Total Counted 100 08/25/25 05:11 Neutrophils % (Manual) 37 % (39-76) L 08/25/25 05:11 Lymphocytes % (Manual) 17 % (13-43) 08/25/25 05:11 Monocytes % (Manual) 4 % (4-9) 08/25/25 05:11 Eosinophils % (Manual) 42 % (0-6) H 08/25/25 05:11 Plt Morphology Comment Normal (NORMAL) 08/25/25 05:11 RBC Morphology Normal (NORMAL) 08/25/25 05:11 Sodium 140 mmol/L (136-145) 08/25/25 05:11 Corrected Sodium TNP 08/25/25 05:11 Potassium 3.7 mmol/L (3.5-5.1) 08/25/25 05:11 Chloride 107 mmol/L (98-107) 08/25/25 05:11 Carbon Dioxide 26.5 mmol/L (21-32) 08/25/25 05:11 BUN 8 mg/dL (7-18) 08/25/25 05:11 Creatinine 0.70 mg/dL (0.55-1.02) 08/25/25 05:11 Est GFR (MDRD) Af Amer > 60 (>60) 08/25/25 05:11 Est GFR (MDRD) Non-Af > 60 (>60) 08/25/25 05:11 Glucose 105 mg/dL (65-99) H 08/25/25 05:11 Lactic Acid 0.9 mmol/L (0.4-2.0) 08/25/25 02:10 Calcium 8.2 mg/dL (8.5-10.1) L 08/25/25 05:11 Corrected Calcium TNP 08/25/25 05:11 Total Bilirubin 0.70 mg/dL (0.2-1.0) 08/25/25 05:11 AST 17 Units/L (15-37) 08/25/25 05:11 ALT 18 Units/L (12-78) 08/25/25 05:11 Alkaline Phosphatase 46 Units/L (46-116) 08/25/25 05:11 Total Protein 5.9 g/dL (6.4-8.2) L 08/25/25 05:11 Albumin 3.4 g/dL (3.4-5.0) 08/25/25 05:11 Globulin 2.5 g/dL (2.5-4.5) 08/25/25 05:11 Albumin/Globulin Ratio 1.4 Ratio (1.1-2.1) 08/25/25 05:11 Amylase 52 Units/L (25-115) 08/25/25 00:36 Lipase 41 Units/L (16-77) 08/25/25 00:36 HCG, Qual Negative <10 mIU/mL 08/25/25 00:36 Specimen Type Clean catch urine 08/25/25 00:26 Urine Color Yellow (YELLOW) 08/25/25 00: Urine Appearance Hazy (CLEAR) 08/25/25 00:26 Urine pH 7.0 (5.0 - 8.0) 08/25/25 00:26 Ur Specific [place] 1.020 (1.000-1.030) 08/25/25 00:26 Urine Protein 1+ (NEGATIVE) 08/25/25 00: Urine Glucose (UA) Negative (NEGATIVE) 08/25/25 00: Urine Ketones 1+ (NEGATIVE) 08/25/25 00: Urine Blood Negative (NEGATIVE) 08/25/25: Urine Nitrite Negative (NEGATIVE) 08/25/25: Urine Bilirubin Negative (NEGATIVE) 08/25/25 00: Urine Urobilinogen Normal (NORMAL) 08/25/25 00:26 Ur Leukocyte Esterase Negative (NEGATIVE) 08/25/25 00: Urine RBC 0-2 /HPF (0-3) 08/25/25 00:26 Urine WBC 0-2 /HPF (0-5) 08/25/25 00:26 Ur Squamous Epith Cells Few /HPF (NEGATIVE) 08/25/25 00:26 Amorphous Sediment 2+ /HPF (NEGATIVE) 08/25/25 00:26 Urine Bacteria Trace /HPF (NEGATIVE) 08/25/25 00:26 Ur Culture Indicated? No/not indicated 08/25/25 00:26 Stool H. pylori Ag Negative (NEGATIVE) 08/25/25 09:45 Review of Systems Constitutional: No Symptoms Reported Eyes: No Symptoms Reported ENT: No Symptoms Reported Respiratory: No Symptoms Reported Cardiovascular: No Symptoms Reported Gastrointestinal: Abdominal Pain Genitourinary: No Symptoms Reported Musculoskeletal: No Symptoms Reported Skin: No Symptoms Reported Neurological: No Symptoms Reported Physical Exam Vital Signs: Vital Signs Temperature 97.8 F Temperature 97.7 F Temperature 97.8 F Pulse Rate [Left Brachial] 78 Pulse Rate [Left Brachial] 96 Pulse Rate [Left Brachial] 78 Pulse Rate [Left Brachial] 81 Respiratory Rate 19 Respiratory Rate 19 Respiratory Rate 18 Respiratory Rate 19 Respiratory Rate 18 Blood Pressure [Right Arm] 102/56 Blood Pressure [Right Arm] 116/55 Blood Pressure [Right Arm] 102/56 Blood Pressure [Left Arm] 104/55 O2 Sat by Pulse Oximetry 96 O2 Sat by Pulse Oximetry 97 O2 Sat by Pulse Oximetry 96 O2 Sat by Pulse Oximetry 100 Oriented: Normal Respiratory: Clear Throughout Cardiovascular: Normal Auscultation: Bowel Sounds: Normal Tenderness: RLQ, Epigastric, Suprapubic and Mild Skin: Normal Musculoskeletal: Normal Psychiatric: Normal Mood Description: Calm Affect: Normal Speech Pattern: Clear and Appropriate Assessment/Plan (1) Sepsis: Status: Acute (2) Abdominal pain: Status: Acute (3) Gastritis: Status: Acute Review H&P Reviewed: Yes Patient was examined?: Yes
[2025-08-25] MEDS: PROTONIX INJ 40 MG VIAL IVP SCH (11:59)
[2025-08-25] MEDS: ULTRAM PO PRN (12:06)
[2025-08-25] MEDS: OMNIPAQUE 350 mg/mL 100 mL BTL 100 ML ONE ×2 (15:26→15:29)
[2025-08-25] MEDS: ZOFRAN INJ 4 MG VIAL IVP PRN (16:24)
[2025-08-25] MEDS: OFIRMEV IV 1000 MG VIAL 1,000 MG/100 ML VIAL IV PRN (16:25)
[2025-08-25] MEDS ORDERED: VANCOMYCIN HCL 1 G in D5W 250 ML IV 250 ML IV SCH (21:00)
[2025-08-25] MEDS ORDERED: VANCOMYCIN IV *PREMIX 1 G/200 ML BAG 1 G/200 ML PIGGYBACK IV SCH (21:00)
[2025-08-26] MEDS: NS 250 ML IV 250 ML IV ONE (02:33)
[2025-08-26 04:52] LABS: RED CELL DISTRIBUTION WIDTH 12.7 % (11.6-16.5)
[2025-08-26 05:02] LABS: COR CA(FOR HYPOALB) 8.8 mg/dL (8.5-10.1); CREATININE 0.81 mg/dL (0.55-1.02); MEAN PLATELET VOLUME 9.2 fL (7.4-11.0); eGFR NON BLACK RACES > 60 (>60)
[2025-08-26 05:32] LABS: PLATELET MORPHOLOGY COMMENT NORMAL (NORMAL)
[2025-08-26] MEDS ORDERED: DIPRIVAN VIAL 20 ML ONE (10:27)
[2025-08-26] MEDS ORDERED: NS 500 ML IV 500 ML IV ONE (10:32)
[2025-08-26] MEDS: NS 1,000 ML IV 100 ML IV PRN (10:33)
[2025-08-26] MEDS ORDERED: XYLOCAINE 2 % (PLAIN) PRN (10:42)
[2025-08-26] MEDS: DIPRIVAN VIAL 200 ML IVP PRN (10:42)
[2025-08-26 12:58] VITALS: BP 103/60; PULSE 70; RESP 17; TEMP 98; O2SAT 99
[2025-08-27] MEDS ORDERED: PHARMACY COMMENT IV NR (08:00)
--- NOTE | 2025-08-27 11:36 | W.DIS.FURT ---
Summary of Discharge Discharge Summary of Date Date of Exam: 08/26/25 Admission Date Date of Admission: 08/25/25 Admission Diagnosis Patient Problems (Updated 08/25/25 @ 11:43 by Radha Lehman MD) Sepsis (Acute) A41.9 Hospital Course: Patient is a 25-year-old female with no pertinent past medical history presented with worsening abdominal pain for the past 5 weeks. She was being treated outpatient for gastritis and H. pylori but continued to have severe pain. ER workup included labs which showed elevated WBC, normal lactic acid, normal lipase. CTAP without contrast showed some pelvic ascites and free fluid but no other abnormalities. She was started on IV antibiotics and fluids. She is feeling slightly better this morning. She did have a reaction with vancomycin so it was stopped. She had some facial swelling and stiffness. She still has some epigastric pain but not as severe as yesterday. She reports having EGD few years ago which was fairly normal. She also had a colonoscopy over 10 years ago as she was having GI symptoms then and does have a family history of Crohn's disease and ulcerative colitis. She was scheduled to see Dr. Mcbride later this month for outpatient workup. She also did see [facility] [facility] INSPECTOR few months ago and had normal exam. She was started on IV fluids and antibiotics. Blood cultures were negative. H. pylori testing was negative. Initial CTAP was reviewed and addendum was made by radiology that patient does have right sided enteritis/ileitis. Dr. Mcbride was also consulted for possible PUD. Patient underwent EGD which showed gastritis. She was feeling better and tolerating p.o. intake. She was stable to be discharged home on p.o. antibiotics. She will follow-up with PCP and Dr. Mcbride as scheduled. Vital Signs: Vital Signs (72 hours) 08/25/25 00:18 08/25/25 03:56 08/25/25 04:15 Temperature 97.6 F Pulse Rate 97 H Pulse Rate [Left Brachial] 81 Respiratory Rate 20 18 Blood Pressure 121/76 Blood Pressure [Left Arm] 104/55 Blood Pressure [Right Arm] O2 Sat by Pulse Oximetry 100 100 Oxygen Delivery Method Room Air Room Air Room Air 08/25/25 04:36 08/25/25 07:35 08/25/25 08:16 Temperature 97.8 F 97.7 F 97.8 F Pulse Rate Pulse Rate [Left Brachial] 78 96 H 78 Respiratory Rate 19 18 19 Blood Pressure Blood Pressure [Left Arm] Blood Pressure [Right Arm] 102/56 116/55 102/56 O2 Sat by Pulse Oximetry 96 97 96 Oxygen Delivery Method Room Air Room Air Room Air 08/25/25 09:48 08/25/25 09:58 08/25/25 10:48 Temperature Pulse Rate Pulse Rate [Left Brachial] Respiratory Rate 19 19 Blood Pressure Blood Pressure [Left Arm] Blood Pressure [Right Arm] O2 Sat by Pulse Oximetry Oxygen Delivery Method Room Air 08/25/25 11:52 08/25/25 12:06 08/25/25 13:06 Temperature 98.0 F Pulse Rate Pulse Rate [Left Brachial] 79 Respiratory Rate 21 18 18 Blood Pressure Blood Pressure [Left Arm] Blood Pressure [Right Arm] 97/56 O2 Sat by Pulse Oximetry 97 Oxygen Delivery Method Room Air 08/25/25 17:09 08/25/25 19:00 08/25/25 20:00 Temperature 97.9 F 97.7 F Pulse Rate Pulse Rate [Left Brachial] 73 72 Respiratory Rate 20 20 Blood Pressure Blood Pressure [Left Arm] Blood Pressure [Right Arm] 97/52 97/55 O2 Sat by Pulse Oximetry 99 98 Oxygen Delivery Method Room Air Room Air Room Air 08/25/25 22:01 08/25/25 23:01 08/26/25 00:00 Temperature 97.8 F Pulse Rate Pulse Rate [Left Brachial] 73 Respiratory Rate 18 20 20 Blood Pressure Blood Pressure [Left Arm] Blood Pressure [Right Arm] 99/51 O2 Sat by Pulse Oximetry 96 Oxygen Delivery Method Room Air 08/26/25 04:00 08/26/25 07:00 08/26/25 07:20 Temperature 97.8 F 98.1 F Pulse Rate Pulse Rate [Left Brachial] 71 74 Respiratory Rate 20 18 Blood Pressure Blood Pressure [Left Arm] Blood Pressure [Right Arm] 98/55 95/53 O2 Sat by Pulse Oximetry 96 95 Oxygen Delivery Method Room Air Room Air Room Air Labs: Laboratory Last Values WBC 9.6 X10^3/uL (3.6-10.0) 08/26/25 04:34 RBC 3.94 X10^6/uL (3.5-5.4) 08/26/25 04:34 Hgb 11.8 g/dL (12.0-16.0) L 08/26/25 04:34 Hct 33.7 % (36.0-47.0) L 08/26/25 04:34 MCV 85.6 fL (80.0-100.0) 08/26/25 04:34 MCH 29.8 pg (27.0-34.0) 08/26/25 04:34 MCHC 34.8 g/dL (33.0-35.0) 08/26/25 04:34 RDW 12.7 % (11.6-16.5) 08/26/25 04:34 Plt Count 185 X10^3/uL (150.0-450.0) 08/26/25 04:34 Plt Count Comment Adequate (ADEQUATE) 08/26/25 04:34 MPV 9.2 fL (7.4-11.0) 08/26/25 04:34 Neut % (Auto) 28.3 % (42.0-75.0) L 08/26/25 04:34 Lymph % (Auto) 22.7 % (21.0-51.0) 08/26/25 04:34 [place] % (Auto) 6.3 % (0.0-13.0) 08/26/25 04:34 Eos % (Auto) 42.2 % (0.9-2.9) H 08/26/25 04:34 Baso % (Auto) 0.5 % (0.2-1.0) 08/26/25 04:34 Neut # (Auto) 2.7 x10^3/uL (2.2-4.8) 08/26/25 04:34 Lymph # (Auto) 2.2 X10^3/uL (1.3-2.9) 08/26/25 04:34 [place] # (Auto) 0.6 x10^3/uL (0.3-0.8) 08/26/25 04:34 Eos # (Auto) 4.0 x10^3/uL (0.0-0.2) H 08/26/25 04:34 Baso # (Auto) 0.0 X10^3/uL (0.0-0.1) 08/26/25 04:34 Absolute Nucleated RBC 0.3 /100WBC 08/26/25 04:34 Total Counted 100 08/26/25 04:34 Neutrophils % (Manual) 41 % (39-76) 08/26/25 04:34 Lymphocytes % (Manual) 19 % (13-43) 08/26/25 04:34 Monocytes % (Manual) 3 % (4-9) L 08/26/25 04:34 Eosinophils % (Manual) 37 % (0-6) H 08/26/25 04:34 Plt Morphology Comment Normal (NORMAL) 08/26/25 04:34 RBC Morphology Normal (NORMAL) 08/26/25 04:34 Sodium 140 mmol/L (136-145) 08/26/25 04:34 Corrected Sodium TNP 08/26/25 04:34 Potassium 4.1 mmol/L (3.5-5.1) 08/26/25 04:34 Chloride 111 mmol/L (98-107) H 08/26/25 04:34 Carbon Dioxide 23.5 mmol/L (21-32) 08/26/25 04:34 BUN 9 mg/dL (7-18) 08/26/25 04:34 Creatinine 0.81 mg/dL (0.55-1.02) 08/26/25 04:34 Est GFR (MDRD) Af Amer > 60 (>60) 08/26/25 04:34 Est GFR (MDRD) Non-Af > 60 (>60) 08/26/25 04:34 Glucose 101 mg/dL (65-99) H 08/26/25 04:34 Lactic Acid 0.9 mmol/L (0.4-2.0) 08/25/25 02:10 Calcium 7.9 mg/dL (8.5-10.1) L 08/26/25 04:34 Corrected Calcium 8.8 mg/dL (8.5-10.1) 08/26/25 04:34 Magnesium 1.8 mg/dL (2.0-2.9) L 08/26/25 04:34 Total Bilirubin 0.40 mg/dL (0.2-1.0) 08/26/25 04:34 AST 10 Units/L (15-37) L 08/26/25 04:34 ALT 13 Units/L (12-78) 08/26/25 04:34 Alkaline Phosphatase 45 Units/L (46-116) L 08/26/25 04:34 Total Protein 5.3 g/dL (6.4-8.2) L 08/26/25 04:34 Albumin 2.9 g/dL (3.4-5.0) L 08/26/25 04:34 Globulin 2.4 g/dL (2.5-4.5) L 08/26/25 04:34 Albumin/Globulin Ratio 1.2 Ratio (1.1-2.1) 08/26/25 04:34 Amylase 52 Units/L (25-115) 08/25/25 00:36 Lipase 41 Units/L (16-77) 08/25/25 00:36 HCG, Qual Negative <10 mIU/mL 08/25/25 00:36 Specimen Type Clean catch urine 08/25/25: Urine Color Yellow (YELLOW) 08/25/25: Urine Appearance Hazy (CLEAR) 08/25/25: Urine pH 7.0 (5.0 - 8.0) 08/25/25: Ur Specific [place] 1.020 (1.000-1.030) 08/25/25: Urine Protein 1+ (NEGATIVE) 08/25/25 00: Urine Glucose (UA) Negative (NEGATIVE) 08/25/25 00: Urine Ketones 1+ (NEGATIVE) 08/25/25: Urine Blood Negative (NEGATIVE) 08/25/25: Urine Nitrite Negative (NEGATIVE) 08/25/25: Urine Bilirubin Negative (NEGATIVE) 08/25/25 00: Urine Urobilinogen Normal (NORMAL) 08/25/25: Ur Leukocyte Esterase Negative (NEGATIVE) 08/25/25: Urine RBC 0-2 /HPF (0-3) 08/25/25: Urine WBC 0-2 /HPF (0-5) 08/25/25: Ur Squamous Epith Cells Few /HPF (NEGATIVE) 08/25/25: Amorphous Sediment 2+ /HPF (NEGATIVE) 08/25/25: Urine Bacteria Trace /HPF (NEGATIVE) 08/25/25: Ur Culture Indicated? No/not indicated 08/25/25: Stool H. pylori Ag Negative (NEGATIVE) 08/25/25 09:45 Reason For Visit: ABD PAIN, SEPSIS Discharge Diagnosis All Active Problems (Updated 08/25/25 @ 11:43 by Radha Lehman MD) Gastritis (Acute) Sepsis (Acute) S/P laparoscopic cholecystectomy (Acute) Fracture, radius, distal (Acute) Sprain of right ankle or foot (Acute) Toothache (Acute) Abscess, dental (Acute) Vomiting (Acute) Abdominal pain (Acute) Nausea & vomiting (Acute) Constipation (Acute) Abdominal pain (Acute) PUD (peptic ulcer disease) (Acute) Plan of Treatment: Continue with present treatment and follow up plan. Pt is to keep follow up appointment as instructed and take medications as ordered. Discharge Medications Discharge Medications: No Known Drug Allergies Allergy (Verified 08/25/25 00:33) vancomycin Allergy (Verified 08/26/25 08:02) CONTINUE taking the following medications sucralfate 1 gram tablet 1 g PO QID 08/25/25 [History] New Prescriptions ciprofloxacin HCl 500 mg tablet 500 mg PO BID 7 days #14 tabs 08/26/25 [Rx] metronidazole 500 mg tablet 500 mg PO Q8H 7 days #21 tabs 08/26/25 [Rx] Discharge Disposition Assessment: No distress noted at discharge. Discharge Disposition: To home Discharge Condition: Stable Discharge Plan Discharge Plan Hospital Course: Patient is a 25-year-old female with no pertinent past medical history presented with worsening abdominal pain for the past 5 weeks. She was being treated outpatient for gastritis and H. pylori but continued to have severe pain. ER workup included labs which showed elevated WBC, normal lactic acid, normal lipase. CTAP without contrast showed some pelvic ascites and free fluid but no other abnormalities. She was started on IV antibiotics and fluids. She is feeling slightly better this morning. She did have a reaction with vancomycin so it was stopped. She had some facial swelling and stiffness. She still has some epigastric pain but not as severe as yesterday. She reports having EGD few years ago which was fairly normal. She also had a colonoscopy over 10 years ago as she was having GI symptoms then and does have a family history of Crohn's disease and ulcerative colitis. She was scheduled to see Dr. Mcbride later this month for outpatient workup. She also did see [facility] INSPECTOR few months ago and had normal exam. She was started on IV fluids and antibiotics. Blood cultures were negative. H. pylori testing was negative. Initial CTAP was reviewed and addendum was made by radiology that patient does have right sided enteritis/ileitis. Dr. Mcbride was also consulted for possible PUD. Patient underwent EGD which showed gastritis. She was feeling better and tolerating p.o. intake. She was stable to be discharged home on p.o. antibiotics. She will follow-up with PCP and Dr. Mcbride as scheduled. Patient Disposition: 01 HOME, SELF-CARE Condition: Stable Health Concerns: Post Hospitalization: new medications and changes needed to prevent readmission or further decline. Pt educated and given instructions on all concerns. Care Plan Goals: Problem: Pain/Alteration in Comfort Goal: Improve/ Resolve Pain; Achieve Pain Tolerance Instructions: Take pain medications as prescribed. Contact your primary care provider if your pain is unrelieved or worsens. Follow up with primary care provider as directed. Plan of Treatment: Continue with present treatment and follow up plan. Pt is to keep follow up appointment as instructed and take medications as ordered. Assessment: No distress noted at discharge. Prescription drug monitoring program results: PDMP reviewed and no concerns identified Prescriptions: New ciprofloxacin HCl 500 mg tablet 500 mg PO BID 7 Days Qty: 14 0RF metronidazole 500 mg tablet 500 mg PO Q8H 7 Days Qty: 21 0RF Continued sucralfate 1 gram tablet 1 g PO QID dicyclomine 10 mg Capsule 10 mg PO Q8H PRNQty: 30 1RF pantoprazole 40 mg Tablet,Delayed Release (Dr/Ec) 40 mg PO BID Qty: 60 1RF Discontinued amoxicillin 500 mg capsule 1,000 mg PO BID clarithromycin 500 mg tablet 500 mg PO BID Orders to Discharge Patient Discharge Orders: Discharge (Routine); Ordered 08/26/25 Ordered By: Radha Lehman Follow ups/Referrals Follow ups/Referrals: Yajaira Jones [Primary Care Provider, Unknown] - 3 days KADE GUERRA [STAFF PHYSICIAN, MEDICAL] - 09/03/25 9:30 am Instructions Instructions: Gastritis, Adult, [id number], Upper Endoscopy, Care After, Nausea and Vomiting, Adult, [id number], Abdominal Pain, Adult, [id number], Monitored Anesthesia Care, Care After, [place] Diet Stand Alone Forms: Excuse From Work or School, Find Help Web Site, Post Hospital Follow Up Care Print Language: CHINESE
== END 2025-08-26 13:10 | disposition home or self-care (01) ==
LOC: MED/SURG 00:17 → ER 00:17 → MED/SURG 04:18
PROVIDERS: ADMIT Internal Medicine; ATTEND Internal Medicine
DX: E83.51 Hypocalcemia; N20.0 Calculus of kidney; Z83.79 Family history of other diseases of the digestive system; R73.09 Other abnormal glucose; R10.84 Generalized abdominal pain; Z87.11 Personal history of peptic ulcer disease; D72.828 Other elevated white blood cell count; R07.89 Other chest pain; K29.00 Acute gastritis without bleeding; K52.89 Other specified noninfective gastroenteritis and colitis; E83.42 Hypomagnesemia